=== PATIENT | male | born 1945 | race Caucasian/White ===

== ENCOUNTER → 2017-04-15 | Outpatient (CLI) | payer MEDICARE, OTHER ==
[~2017-04-15] MED LIST: ASPI-630 PO; ATOR20TA58 PO; CAND32TA2 PO; CARV6.252 PO; CLOP75TA PO; FISH1CAP PO; METF500T4 PO
--- NOTE | 2017-04-15 12:25 | RAD ---
APPROVED REPORT Test Type: Exercise Stress Nurse/Tech: Roxann Strong R.N. Test Indications: CAD Cardiac History: Stents x7, CAD Medications: SEE EMR Medical History: SEE EMR Resting ECG: SR Resting Heart Rate: 74 bpm Resting Blood Pressure: 117/75mmHg Pretest Chest Pain: No chest pain Nurse/Tech Notes S1S2, lungs CTA, denied chest pain and SOA. Consent: The procedure was explained to the patient in lay terms. Informed consent was witnessed. Chapo eout was entered into [employer]. History and Stress Test performed by Roxann Strong R.N. Stress Symptoms Slightly SOA. POST EXERCISE Reason for Termination: Reached target heart rate Target HR: 124 Max HR: 129 bpm Exercise duration: 8:15 min:sec, 3 Stage Exercise capacity: 10.0METs Max Blood Pressure: 142/71mmHg Blood Pressure response to exercise: Normal blood pressure response during stress. Heart Rate response to exercise: Normal Chest Pain: No. Arrhythmia: No. ST Change: Yes. T-wave inversion AVL INTERPRETATION Stress EKG Conclusion: No acute changes were noted. Imaging Protocol IMAGE PROTOCOL: Rest Tc-99m/stress Tc-99m 1 day Rest: Stress: Viability: Radiopharm.Tc99m WxuodnwsuKh66j Sestamibi Vevm12hQh 33mCi Duration 15min. 15min. Img Date 04/15/2017 04/15/2017 Inj-Img Uyfu38ckj. 60min. Rest Admin Site:IV - Right AntecubitalAdministrator:RT Evans (R)(N) Stress Admin Site: IV - Right AntecubitalAdministrator: RT Evans (R)(N) STRESS DATA End Diast. Vol.128.0mlAv. Heart Rate83.0bpm End Syst. Vol.52.0mlCO Index BSA6.3L/min Myocardial Arvu212.0gEject. Zlkgqqwc59.0% Stress Rates Pk. Fill Rate2.55EDV/secLVtime Pk. Fill 197.69msec Pk. Empty Rate3.66ESV/secLVtime Pk. Xawxl360.94msec 07/03 Pk. Fill0.53EDV/sec Stress Scores Regional WT2.00Summed WT25.00 Regional WM0.00Summed WM4.00 LV Perfusion Normal perfusion at stress. Wall Motion Normal wall motion. EF > 55% LV Perf. Quant 17 Seg. SSS1.00 17 Seg. SRS2.00 17 Seg. SDS0.00 Stress Defect Extent (% LAD)0.00Rest Defect Extent (% LAD)14.40Rev. Defect Extent (% LAD)0.00 Stress Defect Extent (% LCX) 8.80Rest Defect Extent (% LCX)31.30Rev. Defect Extent (% LCX)0.00 Stress Defect Extent (% RCA)0.00Rest Defect Extent (% RCA)0.00Rev. Defect Extent (% RCA)0.00 Stress Defect Extent (% JESSIKA)2.40Rest Defect Extent (% JESSIKA)12.60Rev. Defect Extent (% JESSIKA)0.00 Other Information Quality:Poor Risk Assessment: Low Risk Conclusion 1. Normal exercise capacity at 10 Mets achieved. 2. No evidence of ischemia by EKG 3. Normal perfusion at stress. 4. Resting images suboptimal due to motion artifact. 5. Normal EF at > 55% 6. Low risk study.
== END | disposition home or self-care (01) ==
LOC: NM 08:24
PROVIDERS: ATTEND Internal Medicine Cardiovascular Disease
DX: I25.10 Atherosclerotic heart disease of native coronary artery without angina pectoris (principal); I49.5 Sick sinus syndrome; Z79.01 Long term (current) use of anticoagulants
CPT/HCPCS: 78452; 93017; 96374; 96376; A9500

== ENCOUNTER → 2018-04-01 | Outpatient (CLI) | payer MEDICARE, OTHER ==
[~2018-04-01] MED LIST changes: +METF500T16 PO; -METF500T4 PO
--- NOTE | 2018-04-01 10:02 | CARD ---
MR#: [id number] Date of Study: 04/01/2018 Ordering Physician: NORAH SHERWOOD, Referring Physician: NORAH SHERWOOD, Tech: Dennise Baltazar APPROVED REPORT EXAM: Two-dimensional and M-mode echocardiogram with Doppler and color Doppler. Other Information Quality : Good INDICATION CAD 2D DIMENSIONS RVDd3.6 (2.9-3.5cm)Left Atrium(2D)4.6 (1.6-4.0cm) IVSd1.2 (0.7-1.1cm)Aortic Root(2D)3.4 (2.0-3.7cm) LVDd5.8 (3.9-5.9cm)LVOT Diameter2.1 (1.8-2.4cm) PWd1.4 (0.7-1.1cm)IVSs3.7 (0.8-1.2cm) Aortic Valve AoV Peak Leroy.158.9cm/sAoV VTI33.2cm AO Peak GR.10.1mmHgLVOT Peak Leroy.67.5cm/s LVOT VTI 15.75cmAO Mean GR.5mmHg SUGAR (VMAX)1.71xl9MDT (VTI)1.71cm2 Mitral Valve MV E Opajzjfx72.4cm/sMV DECEL MBAB931wu MV A Rxelyqtp16.9cm/sMV WOD94dh E/A Ratio1.5MVA (PHT)3.40cm2 TDI E/Lateral E'8.0E/Medial E'12.5 Pulmonary Valve PV Peak Aqjwoblf378.1cm/sPV Peak Grad.4mmHg Tricuspid Valve RAP PUVRXTXF0gyJkUY Peak Gr.24mmHg JGXM21diWg Pulmonary Vein S1 Lqeozotc05.9cm/sD2 Kzktzbtd72.3cm/s PVa bwpdcahy920lmco LEFT VENTRICLE The left ventricle is normal size. There is normal left ventricular wall thickness. The left ventricu lar systolic function is normal and the ejection fraction is within normal range. The Ejection Fracti on is 55%. Septal motion consistent with conduction abnormality. Overall grossly normal wall motion. Transmitral Doppler flow pattern is normal for age. RIGHT VENTRICLE The right ventricle is normal size. There is normal right ventricular wall thickness. The right ventr icular systolic function is normal. ATRIA The left atrium size is normal. The right atrium size is normal. The interatrial septum is intact wit h no evidence for an atrial septal defect or patent foramen ovale as noted on 2-D or Doppler imaging. AORTIC VALVE The aortic valve is moderately calcified. Doppler and Color Flow revealed trace aortic regurgitation. There is no significant aortic valvular stenosis. MITRAL VALVE The mitral valve is normal in structure and function. There is no mitral valve stenosis. Doppler and Color-flow revealed trace mitral regurgitation. TRICUSPID VALVE The tricuspid valve is normal in structure and function. Doppler and Color Flow revealed trace tricus pid regurgitation. There is no tricuspid valve stenosis. PULMONIC VALVE The pulmonic valve is not well visualized. Doppler and Color Flow revealed trace pulmonic valvular re gurgitation. There is no pulmonic valvular stenosis. GREAT VESSELS The aortic root is normal in size. Normal pulmonary venous flow (Doppler). The IVC is normal in size and collapses >50% with inspiration. PERICARDIAL EFFUSION There is no evidence of significant pericardial effusion. Critical Notification Critical Value: No <Conclusion> The left ventricular systolic function is normal and the ejection fraction is within normal range. Th e Ejection Fraction is 55%. No significant wall motion abnormalities. No significant valvular disease. Signed by : Sotero Villareal, Electronically Approved : 04/01/2018 10:01:03
--- NOTE | 2018-04-01 12:56 | RAD ---
MR#: [id number] Date of Study: 04/01/2018 Ordering Physician: NORAH SHERWOOD, Referring Physician: MARCELLA REID Tech: RT Evans (R) (N) APPROVED REPORT Test Type: Exercise Stress Nurse/Tech: Efrain Kuhn RN Test Indications: CAD Cardiac History: 7 stents, DM Medications: See Electronic Medical Record Medical History: See Electronic Medical Record Resting ECG: SR with PAC Resting Heart Rate: 60 bpm Resting Blood Pressure: 138/74mmHg Pretest Chest Pain: None Nurse/Tech Notes Lungs CTA, S1S2 Consent: The procedure was explained to the patient in lay terms. Informed consent was witnessed. Chapo eout was entered into [employer]. History and Stress Test performed by Efrain Kuhn RN Stress Symptoms Dyspnea POST EXERCISE Reason for Termination: Reached target heart rate Target HR: 124 Max HR: 125 bpm 86% of Maximum Predicted HR: 146 bpm Exercise duration: 8:19 min:sec, 3 Stage Max Blood Pressure: 160/74mmHg Blood Pressure response to exercise: Normal blood pressure response during stress. Heart Rate response to exercise: Normal response Chest Pain: No. Arrhythmia: Yes. PAC, PVC ST Change: No. INTERPRETATION Stress EKG Conclusion: The resting EKG showed a sinus rhythm, a septal Q wave and nonspecific ST segm ent changes. The stress EKG showed no significant changes from baseline. No EKG evidence of stress-induced ischemia. Imaging Protocol IMAGE PROTOCOL: Rest Tc-99m/stress Tc-99m 1 day Rest: Stress: Viability: Radiopharm.Tc99m NtiaoilwhWo71q Sestamibi Dose11.5mCi 34.5mCi Duration 15min. 10min. Img Date 04/01/2018 04/01/2018 Inj-Img Lxyf55jif. 60min. Rest Admin Site:IV - Right AntecubitalAdministrator:RT Evans (R)(N) Stress Admin Site: IV - Right AntecubitalAdministrator: YOANA Cox, ARRT (R)(N) STRESS DATA End Diast. Vol.154.0mlAv. Heart Rate75.0bpm End Syst. Vol.66.0mlCO Index BSA0.0L/min Myocardial Euna278.0gEject. Hexdtrvd78.0% Stress Rates Pk. Fill Rate2.42EDV/secLVtime Pk. Fill 234.85msec Pk. Empty Rate2.59ESV/secLVtime Pk. Eject99.49msec 1/3 Pk. Fill1.14EDV/sec Stress Scores Regional WT1.00Summed WT13.00 Regional WM0.00Summed WM13.00 LV Perfusion The stress scans show mild apical thinning. The rest scans show mild apical thinning. Nuclear imaging shows no reversible ischemia. Nuclear imaging shows fixed apical thinning suggestive of prior infarct. Wall Motion Left ventricular systolic function shows an ejection fraction of 57% and slight apical hypokinesis. LV Perf. Quant 17 Seg. SSS2.00 17 Seg. SRS3.00 17 Seg. SDS0.00 Stress Defect Extent (% LAD)3.80Rest Defect Extent (% LAD)1.90Rev. Defect Extent (% LAD)0.60 Stress Defect Extent (% LCX) 23.80Rest Defect Extent (% LCX)13.80Rev. Defect Extent (% LCX)2.50 Stress Defect Extent (% RCA)0.00Rest Defect Extent (% RCA)0.00Rev. Defect Extent (% RCA)0.00 Stress Defect Extent (% JESSIKA)7.80Rest Defect Extent (% JESSIKA)6.10Rev. Defect Extent (% JESSIKA)0.70 Conclusion 1. Good exercise tolerance. 2. No chest pain with exertion. 3. No EKG evidence of stressed induced ischemia. 4. Nuclear imaging shows no reversible ischemia. 5. Nuclear imaging shows mild fixed apical thinning. 6. Intact Left ventricular systolic function with an ejection fraction of 57%. 7. Moderately low risk Lexiscan nuclear stress test showing good exercise tolerance, no chest pain wi th exertion, no evidence of reversible ischemia on nuclear scans and good LV systolic function. Signed by : Wesley De Souza MD Electronically Approved : 04/01/2018 12:54:36
== END | disposition home or self-care (01) ==
LOC: ECHO 07:32
PROVIDERS: ATTEND Internal Medicine Cardiovascular Disease
DX: I25.10 Atherosclerotic heart disease of native coronary artery without angina pectoris (principal); E11.9 Type 2 diabetes mellitus without complications
CPT/HCPCS: 78452; 93017; 93306; 96374; 96376; A9500

== ENCOUNTER → 2019-03-19 | Outpatient (CLI) | payer MEDICARE, OTHER ==
[~2019-03-19] MED LIST changes: +CAND32TA19 PO; -CAND32TA2 PO; +CARV6.2511 PO; -CARV6.252 PO; +REGADENOSON 0.4 MG/5 ML DISP.SYRIN. IV ONE
--- NOTE | 2019-03-19 09:08 | CARD ---
MR#: [id number] Date of Study: 03/19/2019 Ordering Physician: NORAH SHERWOOD, Referring Physician: NORAH SHERWOOD Tech: Gilma Adkins RDCS APPROVED REPORT EXAM: Two-dimensional and M-mode echocardiogram with Doppler and color Doppler. Other Information Quality : AverageHR: 64bpm Rhythm : NSR INDICATION CAD 2D DIMENSIONS RVDd3.5 (2.9-3.5cm)Left Atrium(2D)4.0 (1.6-4.0cm) IVSd1.5 (0.7-1.1cm)Aortic Root(2D)3.6 (2.0-3.7cm) LVDd5.2 (3.9-5.9cm)LVOT Diameter2.2 (1.8-2.4cm) PWd1.2 (0.7-1.1cm)IVSs1.9 (0.8-1.2cm) LVDs3.6 (2.5-4.0cm)FS (%) 30.2 % PWs1.7 (0.8-1.2cm)SV73.2 ml LVEF(%)57.2 (>50%) M-Mode DIMENSIONS Left Atrium(MM)3.92 (2.5-4.0cm)Aortic Root3.72 (2.2-3.7cm) Aortic Valve AoV Peak Leroy.119.5cm/sAoV VTI25.5cm AO Peak GR.5.7mmHgLVOT Peak Leroy.63.6cm/s LVOT VTI 14.79cmAO Mean GR.3mmHg SUGAR (VMAX)1.76nw8GMB (VTI)2.14cm2 Mitral Valve MV E Avornapb83.0cm/sMV DECEL AGSA805lz MV A Qaacfhqm47.3cm/sMV VUL77ql E/A Ratio0.7MVA (PHT)2.25cm2 TDI E/Lateral E'4.8E/Medial E'9.9 Pulmonary Valve PV Peak Qvvwptkf16.7cm/sPV Peak Grad.3mmHg Pulmonary Vein S1 Pypinvrg24.9cm/sD2 Xktkkayd31.4cm/s PVa gurfgggi401dgbh LEFT VENTRICLE The left ventricle is normal size. There is mild concentric left ventricular hypertrophy. The left ve ntricular systolic function is normal and the ejection fraction is within normal range.The Ejection F raction is 55-60%. There is normal LV segmental wall motion. Transmitral Doppler flow pattern is Grad e I-abnormal relaxation pattern. RIGHT VENTRICLE The right ventricle is normal size. There is normal right ventricular wall thickness. The right ventr icular systolic function is normal. ATRIA The left atrium is mildly dilated. The right atrium size is normal. The interatrial septum is intact with no evidence for an atrial septal defect or patent foramen ovale as noted on 2-D or Doppler imagi ng. AORTIC VALVE The aortic valve is trileaflet. The aortic valve is heavily calcified. Doppler and Color Flow reveale d trace aortic regurgitation. There is no significant aortic valvular stenosis. MITRAL VALVE The mitral valve is thickened but opens well. There is no evidence of mitral valve prolapse. There is no mitral valve stenosis. Doppler and Color-flow revealed mild mitral regurgitation. TRICUSPID VALVE The tricuspid valve is normal in structure and function. Doppler and Color Flow revealed no tricuspid valve regurgitation noted. There is no tricuspid valve prolapse or vegetation. There is no tricuspid valve stenosis. PULMONIC VALVE The pulmonic valve is not well visualized. GREAT VESSELS The aortic root is normal in size. The ascending aorta is moderately dilated at 4.2cm. The IVC is nor mal in size and collapses >50% with inspiration. PERICARDIAL EFFUSION There is no evidence of significant pericardial effusion. Critical Notification Critical Value: No <Conclusion> The left ventricular systolic function is normal and the ejection fraction is within normal range.The Ejection Fraction is 55-60%. There is normal LV segmental wall motion. The aortic valve is trileaflet. The aortic valve is heavily calcified. The ascending aorta is moderately dilated at 4.2cm. Signed by : Sotero Villareal, Electronically Approved : 03/19/2019 09:08:11
--- NOTE | 2019-03-19 11:42 | RAD ---
MR#: [id number] Date of Study: 03/19/2019 Ordering Physician: NORAH SHERWOOD, Referring Physician: MARCELLA REID Tech: YOANA Cox, ARRT (R) (N) APPROVED REPORT Test Type: Pharmacological Stress Nurse/Tech: Cristina Araya R.N. Test Indications: CAD Cardiac History: Family history, Hypertension, Diabetes, stents Medications: See Electronic Medical Record Medical History: See Electronic Medical Record Resting ECG: NSR Resting Heart Rate: 65 bpm Resting Blood Pressure: 146/78mmHg Pretest Chest Pain: No chest pain Nurse/Tech Notes S1S2, lungs sound clear Consent: The procedure was explained to the patient in lay terms. Informed consent was witnessed. Chapo eout was entered into [email or web address]. History and Stress Test performed by Cristina Araya R.N. Pharm. Details Pharmacologic stress testing was performed using 0.4mg per 5ml of regadenoson given intravenously ove r 7-10 seconds. Stress Symptoms No chest pain or symptoms. POST EXERCISE Reason for Termination: Infusion complete Target HR: 123 Max HR: 92 bpm Max Blood Pressure: 149/82mmHg Blood Pressure response to exercise: Normal blood pressure response during stress. Chest Pain: No. Arrhythmia: No. ST Change: No. INTERPRETATION Stress EKG Conclusion: Baseline EKG showed sinus rhythm. No ischemic changes at peak stress. No arr hythmias. Imaging Protocol IMAGE PROTOCOL: Rest Tc-99m/stress Tc-99m 1 day Rest: Stress: Viability: Radiopharm.Tc99m TnddiruzoNx88o Sestamibi Ccvz95pDr 33mCi Img Date 03/19/2019 03/19/2019 Inj-Img Amyg45vtb. 45min. Rest Admin Site:IV - Right HandAdministrator:YOANA Cox, ARRT (R)(N) Stress Admin Site: IV - Right HandAdministrator: YOANA Cox, ARRT (R)(N) STRESS DATA End Diast. Vol.147.0mlLVEDV index BSA70.0ml End Syst. Vol.77.0mlLVESV index BSA37.0ml Myocardial Ifou114.0gEject. Sdzkuepz10.0% Stress Scores Regional WT1.00Summed WT21.00 Regional WM0.00Summed WM19.00 LV Perfusion Scintigraphic images showed apical wall thinning without any evidence of ischemia Wall Motion Normal left ventricle systolic function with ejection fraction 55%. LV Perf. Quant 17 Seg. SSS8.00 17 Seg. SRS10.00 17 Seg. SDS0.00 Stress Defect Extent (% LAD)13.80Rest Defect Extent (% LAD)31.90Rev. Defect Extent (% LAD)1.90 Stress Defect Extent (% LCX) 31.30Rest Defect Extent (% LCX)42.50Rev. Defect Extent (% LCX)0.00 Stress Defect Extent (% RCA)0.00Rest Defect Extent (% RCA)4.40Rev. Defect Extent (% RCA)0.00 Stress Defect Extent (% JESSIKA)16.70Rest Defect Extent (% JESSIKA)26.50Rev. Defect Extent (% JESSIKA)1.50 Conclusion 1. Regadenoson cardioisotope stress test showed apical wall thinning without any evidence of ischemia . 2. Normal left ventricular systolic function with ejection fraction calculated at 55%. 3. Low risk for cardiac events. Signed by : Norah Sherwood, Electronically Approved : 03/19/2019 11:42:34
== END | disposition home or self-care (01) ==
LOC: ECHO 07:47
PROVIDERS: ATTEND Internal Medicine Cardiovascular Disease
DX: I08.0 Rheumatic disorders of both mitral and aortic valves (principal); I11.9 Hypertensive heart disease without heart failure; I25.10 Atherosclerotic heart disease of native coronary artery without angina pectoris; E11.9 Type 2 diabetes mellitus without complications; Z95.5 Presence of coronary angioplasty implant and graft
CPT/HCPCS: 78452; 93017; 93306; A9500; J2785

== ENCOUNTER → 2020-06-02 | Outpatient (CLI) | payer MEDICARE, OTHER ==
--- NOTE | 2020-06-02 13:29 | RAD ---
MR#: [id number] Date of Study: 06/02/2020 Ordering Physician: NORAH SHERWOOD Referring Physician: MARCELLA REID Tech: RT Ronit Mercado) (N) APPROVED REPORT Test Type: Pharmacological Stress Nurse/Tech: Efrain Kuhn RN Test Indications: CAD Cardiac History: stents x 8, DM Medications: See Electronic Medical Record Medical History: See Electronic Medical Record Resting ECG: SR Resting Heart Rate: 72 bpm Resting Blood Pressure: 136/81mmHg Pretest Chest Pain: None Nurse/Tech Notes Lungs CTA, S1S2 Consent: The procedure was explained to the patient in lay terms. Informed consent was witnessed. Chapo eout was entered into [employer]. History and Stress Test performed by RT Ronit Krueger) (N) Pharm. Details Pharmacologic stress testing was performed using 0.4mg per 5ml of regadenoson given intravenously ove r 7-10 seconds. Stress Symptoms No chest pain or symptoms. POST EXERCISE Reason for Termination: Infusion complete Max HR: 90 bpm Max Blood Pressure: 164/90mmHg Blood Pressure response to exercise: Normal blood pressure response during stress. Heart Rate response to exercise: Normal response Chest Pain: No. Arrhythmia: No. ST Change: No. INTERPRETATION Stress EKG Conclusion: No evidence of stress induced EKG changes. Imaging Protocol IMAGE PROTOCOL: Rest Tc-99m/stress Tc-99m 1 day Rest: Stress: Viability: Radiopharm.Tc99m PiaywzdbjMs03d Sestamibi Dose10.5mCi 32.7mCi Duration 13min. 13min. Img Date 06/02/2020 06/02/2020 Inj-Img Eiam20hvh. 60min. Rest Admin Site:IV - Right AntecubitalAdministrator:RT Ronit Mercado)(N) Stress Admin Site: IV - Right AntecubitalAdministrator: RT Ronit Krueger)(N) STRESS DATA End Diast. Vol.110.0mlLVEDV index BSA53.0ml End Syst. Vol.57.0mlLVESV index BSA28.0ml Myocardial Uuyh383.0gEject. Rasihvcl37.0% Stress Scores Regional WT1.00Summed WT32.00 Regional WM0.00Summed WM14.00 LV Perfusion There is a small/mild distal anteroseptal perfusion defect at stress, which reverses at rest. Wall Motion Mild global hypokinesis. EF 45% LV Perf. Quant 17 Seg. SSS4.00 17 Seg. SRS5.00 17 Seg. SDS0.00 Stress Defect Extent (% LAD)6.90Rest Defect Extent (% LAD)3.10Rev. Defect Extent (% LAD)0.00 Stress Defect Extent (% LCX) 16.30Rest Defect Extent (% LCX)22.50Rev. Defect Extent (% LCX)0.00 Stress Defect Extent (% RCA)0.00Rest Defect Extent (% RCA)0.00Rev. Defect Extent (% RCA)0.00 Stress Defect Extent (% JESSIKA)7.80Rest Defect Extent (% JESSIKA)6.70Rev. Defect Extent (% JESSIKA)1.70 Other Information Quality:Average Risk Assessment: Low-Moderate Risk Conclusion 1. No evidence of stress induced EKG changes. 2. Small distal anteroseptal reversible perfusion defect. No significant ischemia. 3. Mild LV dysfunction. EF 45% 4. Moderate risk for future CV events. Signed by : Sotero Villareal, Electronically Approved : 06/02/2020 13:28:29
--- NOTE | 2020-06-02 15:44 | RAD ---
MR#: [id number] Date of Study: 06/02/2020 Ordering Physician: NORAH SHERWOOD, Referring Physician: NORAH SHERWOOD, Tech: APPROVED REPORT Patient Location: OUT-PATIENT Laterality:Bilateral Doppler Spectral Velocity Analysis Right Left pCCA 67/16 cm/spCCA 77/14 cm/s mCCA 61/17 cm/smCCA 62/18 cm/s dCCA 58/19 cm/sdCCA 66/21 cm/s ECA 93/ cm/sECA 64/ cm/s pICA 55/13 cm/spICA 55/12 cm/s Augustine 48/16 cm/smICA 48/17 cm/s dICA 67/16 cm/sdICA 62/24 cm/s ICA/CCA 1.00ICA/CCA 0.81 Findings Grayscale images of the bilateral carotid vasculature demonstrates mild intimal hyperplasia and ather osclerotic plaque noted. Spectral waveforms are overall consistent with 0 to less than 50% stenosis bilaterally in the interna l carotid vessels. Antegrade vertebral velocities are noted with normal ICA to CCA ratios. Critical Notification Critical Value: No <Conclusion> 1. No significant carotid disease bilaterally. Signed by : Sotero Villareal, Electronically Approved : 06/02/2020 15:43:28
--- NOTE | 2020-06-03 10:27 | CARD ---
MR#: [id number] Date of Study: 06/02/2020 Ordering Physician: NORAH SHERWOOD, Referring Physician: NORAH SHERWOOD, Jamia: Mary Carmen APPROVED REPORT EXAM: Two-dimensional and M-mode echocardiogram with Doppler and color Doppler. Other Information Quality : AverageHR: 69bpm Rhythm : NSR INDICATION Cardiac Disease: CAD 2D DIMENSIONS Left Atrium(2D)4.2 (1.6-4.0cm)IVSd1.2 (0.7-1.1cm) Aortic Root(2D)3.8 (2.0-3.7cm)LVDd5.3 (3.9-5.9cm) LVOT Diameter2.4 (1.8-2.4cm)PWd1.2 (0.7-1.1cm) LVDs4.0 (2.5-4.0cm)FS (%) 24.6 % SV64.3 mlLVEF(%)48.5 (>50%) Aortic Valve AoV Peak Leroy.145.6cm/Leslie Peak GR.8.5mmHg Mitral Valve MV E Kpktljpp84.3cm/sMV DECEL LXWR612og MV A Xlrwygvd20.9cm/sE/A Ratio0.7 MV A Slsaacwg821mf Pulmonary Valve PV Peak Petqxyko98.2cm/s Pulmonary Vein S1 Ouidjujv04.1cm/sD2 Gxyevgvo04.6cm/s PVa ifhnfhmk596bhcd LEFT VENTRICLE The left ventricle is normal size. There is normal left ventricular wall thickness. The left ventricu lar systolic function is normal and the ejection fraction is within normal range. EF 55% Septal motio n suggestive of conduction defect. The apical LV is mildly hypokinetic. Transmitral Doppler flow magdi franklin is Grade I-abnormal relaxation pattern. No left ventricle thrombus noted on this study. There is no ventricular septal defect visualized. There is no left ventricular aneurysm. RIGHT VENTRICLE The right ventricle is normal size. There is normal right ventricular wall thickness. The right ventr icular systolic function is normal. ATRIA The left atrium size is normal. The right atrium size is normal. The interatrial septum is intact wit h no evidence for an atrial septal defect or patent foramen ovale as noted on 2-D or Doppler imaging. AORTIC VALVE The aortic valve is mildly thickened and calcified with restricted leaflet motion. Doppler and Color Flow revealed no significant aortic regurgitation. There is no significant aortic valvular stenosis. There is no aortic valvular vegetation. MITRAL VALVE The mitral valve is normal in structure and function. There is no evidence of mitral valve prolapse. There is no mitral valve stenosis. Doppler and Color Flow revealed trace mitral regurgitation. TRICUSPID VALVE The tricuspid valve is normal in structure and function. Doppler and Color Flow revealed no tricuspid valve regurgitation noted. There is no tricuspid valve prolapse or vegetation. There is no tricuspid valve stenosis. PULMONIC VALVE Doppler and Color Flow revealed no pulmonic valvular regurgitation. There is no pulmonic valvular edson nosis. GREAT VESSELS The aortic root is normal in size. The ascending aorta is Mildly dilated measuring up to 4.7cm The pu lmonary artery is normal. The IVC is normal in size and collapses >50% with inspiration. PERICARDIAL EFFUSION There is no pleural effusion. There is no evidence of significant pericardial effusion. Critical Notification Critical Value: No <Conclusion> The left ventricular systolic function is normal and the ejection fraction is within normal range. EF 55% Septal motion suggestive of conduction defect. The apical LV is mildly hypokinetic. The ascending aorta is Mildly dilated measuring up to 4.7cm Signed by : Sotero Villareal, Electronically Approved : 06/02/2020 12:26:31
== END ==
LOC: ECHO 08:12
PROVIDERS: ATTEND Internal Medicine Cardiovascular Disease
DX: I35.1 Nonrheumatic aortic (valve) insufficiency (principal); I25.10 Atherosclerotic heart disease of native coronary artery without angina pectoris; I65.23 Occlusion and stenosis of bilateral carotid arteries; R09.89 Other specified symptoms and signs involving the circulatory and respiratory systems; Z95.5 Presence of coronary angioplasty implant and graft
CPT/HCPCS: 78452; 93017; 93306; 93880; A9500; J2785

== ENCOUNTER 2020-06-17 06:57 | Outpatient (CLI) | payer MEDICARE, OTHER ==
[2020-06-17] VITALS (19 sets, daily range): BP systolic 122–169; BP diastolic 71–94
[~2020-06-17] VITALS: Ht 172.7 cm; Wt 93.0 kg
[~2020-06-17 06:57] MED LIST changes: -REGADENOSON 0.4 MG/5 ML DISP.SYRIN. IV ONE
[2020-06-17 07:34] LABS: HEMATOCRIT 42.9 % (39.0-53.0); HEMOGLOBIN 14.8 g/dL (13.0-17.5); RED BLOOD COUNT 4.64 x10^6/uL (4.30-5.70); RED CELL DISTRIBUTION WIDTH 13.6 % (11.5-14.5); WHITE BLOOD COUNT 7.3 x10^3/uL (4.0-11.0)
[2020-06-17] MEDS ORDERED: IODIXANOL 320 MG/ML 100 ML VIAL. ONE ×2 (07:36→09:06)
[2020-06-17] MEDS ORDERED: LIDOCAINE 1% PF 2 ML VIAL. ONE (07:36)
[2020-06-17 07:44] LABS: CALCIUM 8.7 mg/dL (8.5-10.1); CREATININE 1.1 mg/dL (0.7-1.3); GFR 65.1; POTASSIUM 4.1 mmol/L (3.5-5.1)
[2020-06-17 07:47] LABS: PROTHROMBIN TIME PATIENT 13.4 SEC (11.7-14.0)
[2020-06-17] MEDS ORDERED: HEPARIN for IV BOLUS 10,000 UNIT/10 ML VIAL. ONE (08:06)
[2020-06-17] MEDS ORDERED: NITROGLYCERIN 200 MCG/2 ML SYRINGE FOR CATH/VASC LAB. ONE (08:06)
[2020-06-17] MEDS ORDERED: VERAPAMIL 5 MG/2 ML VIAL. ONE (08:06)
[2020-06-17] MEDS ORDERED: fentaNYL PF VIAL 100 MCG/2 ML VIAL ONE (08:06)
[2020-06-17] MEDS ORDERED: MIDAZOLAM HCL/PF 5 MG/5 ML VIAL. ONE (08:06)
[2020-06-17] MEDS ORDERED: TAMS0.4C97 PO (08:12)
[2020-06-17] MEDS ORDERED: EMPA10TA PO (08:12)
[2020-06-17] MEDS ORDERED: [UNRECOGNIZED DRUG - OTHER] PO (08:12)
[2020-06-17] MEDS ORDERED: BIVALIRUDIN 250 MG VIAL. IV ONE ×2 (09:02→09:15)
[2020-06-17] MEDS ORDERED: NITROGLYCERIN 200 MCG/2 ML SYRINGE FOR CATH/VASC LAB. IART ONE (09:15)
[2020-06-17] MEDS ORDERED: HEPARIN for IV BOLUS 10,000 UNIT/10 ML VIAL. IART ONE (09:15)
[2020-06-17] MEDS ORDERED: IODIXANOL 320 MG/ML 100 ML VIAL. IART ONE (09:15)
[2020-06-17] MEDS ORDERED: MIDAZOLAM HCL/PF 5 MG/5 ML VIAL. IV ONE (09:15)
[2020-06-17] MEDS ORDERED: fentaNYL PF VIAL 100 MCG/2 ML VIAL IV ONE (09:15)
[2020-06-17] MEDS ORDERED: LIDOCAINE 1% PF 2 ML VIAL. INJ ONE (09:15)
[2020-06-17] MEDS ORDERED: VERAPAMIL 5 MG/2 ML VIAL. IART ONE (09:15)
[2020-06-17] MEDS ORDERED: CONTRAST GIVEN. MC PRN (09:30)
[2020-06-17] MEDS ORDERED: CLOPIDOGREL BISULFATE 75 MG TABLET ONE (09:46)
[2020-06-17] MEDS ORDERED: ASPIRIN 325 MG TABLET ONE (09:46)
--- NOTE | 2020-06-17 09:56 | PDOC ---
MODERATE SEDATION ASSESSMENT RISKS/ALTERNATIVES Risks/Alternatives Risks and alternatives of this type of sedation and procedure discussed with: RISK/ALTERNATIVES: Patient H & P ON CHART H & P H & P on chart and reviewed for co-morbid conditions and appropriate labs. H&P ON CHART: Yes STATUS PREG STATUS ASSESSED: N/A MEDS/ALLERGIES REVIEWED Meds/Allergies Reviewed Medications and Allergies including time and route of recently administered narcotics and sedatives. MEDS/ALLERGIES REVIEWED: Yes ASA RATING ASA RATING: II AIRWAY ASSESSMENT Airway Assessment Airway patency, oral function limitations, presence of caps, crowns, dentures, partials, and ability to extend neck assessed. AIRWAY ASSESSMENT: Yes MALLAMPATI SCORE MALLAMPATI SCORE: II PRE-SEDATION ASSESSMENT PRE-SEDATION ASSESSMENT: Yes NORAH SHERWOOD MD Jun 17, 2020 09:55
[2020-06-17] MEDS ORDERED: ACETAMINOPHEN 325 MG TABLET. PO PRN (10:00)
[2020-06-17] MEDS ORDERED: NITROGLYCERIN SUBLINGUAL 0.4 MG BOTTLE OF 25. SL PRN (10:00)
[2020-06-17] MEDS ORDERED: ASPIRIN 325 MG TABLET PO ONE (10:00)
[2020-06-17] MEDS ORDERED: CLOPIDOGREL BISULFATE 75 MG TABLET PO ONE (10:00)
[2020-06-17] MEDS ORDERED: IV 1/2 NORMAL SALINE 1,000 ML IV SCH (10:00)
--- NOTE | 2020-06-17 10:21 | CARD ---
MR#: [id number] Date of Study: 06/17/2020 Ordering Physician: NORAH SHERWOOD, Referring Physician: NORAH SHERWOOD Tech: ANDRÉS PICKARD RTR APPROVED REPORT Technologist: ANDRÉS PICKARD RTR Nurse: Nhung Felix R.N. Procedure(s) performed: 1. Left heart catheterization and selective coronary angiography via right t ransradial approach 2. Successful PCI/drug-eluting stent placement to the left anterior descending artery 3. Instantaneous wave free ratio (IFR) measurement to right coronary artery stenosis MODERATE SEDATION TIME: 75 MINUTES FLUORO TIME: 21.8 MIN DOSE: 141 GYCM2 CONTRAST: 203CC VISI INDICATION The indication(s) include : Dyspnea on exertion in a patient with known history of coronary artery di sease and positive stress test. [facility] Clinical Frailty Scale [facility] Clinical Frailty Scale: Managing Well Heart Failure Heart Failure: No PROCEDURE NARRATIVE After explaining the risks, benefits and alternative options, informed consent was obtained from carmen ent. Patient was brought to the cardiac Riding Instructor and right wrist was prepped and draped in the usual fashion after confirming a positive modified Julius's test. Arterial access was obtained in the righ t radial artery and a 6 [place] sheath was inserted. 6 [place] Raúl catheter was used to perform mando ective angiography of the left and right coronary arteries. Since patient was found to have angiogra phically borderline significant stenosis involving the right coronary artery, a decision was made to perform physiologic significance using instantaneous wave free ratio (IFR) measurement. The right co ronary artery was engaged with a 6 [place] JR4 guide catheter and the stenosis in the midsegment was c rossed with a LeadGenius Verrata pressure wire. IFR measurement was made there was physiologically insi gnificant at 0.98. Left ventriculography was not performed due to contrast load used for interventio n and since recent 2D echo showed LVEF 55%. FINDINGS Coronary angiography: a. The left main coronary artery arose from the left sinus of Valsalva, gave rise to the left anteri or descending and left circumflex arteries and did not show any significant stenosis. b. The left anterior descending artery was a small to medium caliber vessel that showed calcified 90 % stenosis in the proximal segment, patent stent in the mid segment and another patent stent in the m id to distal segment with 50% stenosis just proximal to the stent. The first diagonal branch which i s a moderate to large caliber vessel showed patent stent in the proximal segment with 20% instent res tenosis. c. The left circumflex artery showed patent stent in the midsegment with probably 20% in-stent reste nosis. d. The right coronary artery was a large and dominant vessel arising from the right sinus of Valsalv a that showed 50% stenosis in the midsegment that was physiologically insignificant based on IFR swapna urement of 0.98. The previously placed stent in the posterolateral branch was patent. INTERVENTION The left main coronary artery was engaged with a 6 [place] XB 3.5 guide catheter. The stenosis in the proximal segment of the left anterior descending artery was crossed with a 0.014 inch Summon guidewire. This was predilated with a 2.5 x 12 mm trek balloon. Initial attempts to advance stent across this lesion were unsuccessful secondary to tortuosity and calcification. A 6 [place] Telescope inner catheter was then advanced into the proximal segment of the left anterior descending artery fo r backup support. Subsequently, a 2.5 x 12 mm [employer] Promus Elite stent was advanced and successfully deployed across the lesion. Follow-up angiography showed resolution of the lesion with MEENA-3 distal flow. Patient tolerated the procedure well. Hemostasis was achieved using TR band. T here were no immediate complications. MEENA Flow MEENA Flow (Pre-Intervention): MEENA-2 MEENA Flow (Post-Intervention): MEENA-3 Conclusion 1. Coronary artery disease with patent previously placed stents in mid and mid to distal segments of LAD and proximal segment of moderate to large caliber diagonal branch. There was 90% calcified sten osis in the proximal segment of left anterior descending artery. Patient also had patent stents in t he left circumflex artery and posterolateral branch of the right coronary artery. There was 50% sten osis in mid segment of the right coronary artery that was physiologically insignificant based on IFR measurement of 0.98. 2. Successful PCI/drug-eluting stent placement to the left anterior descending artery. Recommendations 1. Aspirin 325 mg daily for 1 month followed by 81 mg daily 2. Plavix 75 mg daily 3. Cardiovascular risk factor modification Signed by : Norah Sherwood, Electronically Approved : 06/17/2020 10:20:42
--- NOTE | 2020-06-17 14:12 | NUR ---
Discharge Note: STEVAN HERNANDEZ Discharge instructions and discharge home medications reviewed with Patient and a copy given. All questions have been answered and understanding verbalized. The following instructions and handouts were given: Radial site care and Moderate sedation. Discontinued lines and drains: Left hand IV site dc'd and tip intact. Patient discharged to home with via personal vehicle.
[2020-06-18] MEDS ORDERED: CLOPIDOGREL BISULFATE 75 MG TABLET PO SCH (08:00)
[2020-06-18] MEDS ORDERED: ASPIRIN ENTERIC COATED 325 MG TABLET.DR. PO SCH (08:00)
== END 2020-06-17 14:15 | disposition home or self-care (01) ==
LOC: CCL 06:57
PROVIDERS: ATTEND Internal Medicine Cardiovascular Disease
DX: R06.00 Dyspnea, unspecified (principal); R94.39 Abnormal result of other cardiovascular function study; I25.10 Atherosclerotic heart disease of native coronary artery without angina pectoris; E78.5 Hyperlipidemia, unspecified; E11.9 Type 2 diabetes mellitus without complications; Z79.899 Other long term (current) drug therapy; Z98.890 Other specified postprocedural states; Z79.84 Long term (current) use of oral hypoglycemic drugs; Z88.8 Allergy status to other drugs, medicaments and biological substances
CPT/HCPCS: 36415; 80048; 85027; 85610; 93454; 93571; 99152; 99153; C1713; C1725; C1769; C1874; C1887; C1892; C9600; J0583; J1644; J2250; J3010; J3490; Q9967; 92928

== ENCOUNTER 2020-11-13 02:31 | Observation (INO) | payer MEDICARE, OTHER ==
[~2020-11-13] VITALS: Ht 172.7 cm; Wt 97.9 kg
[~2020-11-13 02:31] MED LIST changes: +EMPA10TA PO; +TAMS0.4C97 PO; +[UNRECOGNIZED DRUG - OTHER] PO
[2020-11-13 02:48] LABS: BASO # 0.1 x10^3/uL (0.0-0.2); BASO % 1 % (0-3); EOS # 0.3 x10^3/uL (0.0-0.7); EOS % 4 % (0-3); HEMATOCRIT 42.2 % (39.0-53.0); HEMOGLOBIN 14.7 g/dL (13.0-17.5); LYMPH # 1.7 x10^3/uL (1.0-4.8); LYMPH % 21 % (24-48); MEAN CORPUSCULAR HEMOGLOBIN 32 pg (25-35); MEAN CORPUSCULAR HGB CONC 35 g/dL (31-37); MEAN CORPUSCULAR VOLUME 93 fL (79-100); MONO # 0.7 x10^3/uL (0.0-1.1); MONO % 9 % (0-9); NEUT # 5.1 x10^3/uL (1.8-7.7); NEUT % 65 % (31-73); PLATELET COUNT 173 x10^3/uL (140-400); RED BLOOD COUNT 4.54 x10^6/uL (4.30-5.70); RED CELL DISTRIBUTION WIDTH 13.5 % (11.5-14.5); WHITE BLOOD COUNT 7.9 x10^3/uL (4.0-11.0)
[2020-11-13 02:57] LABS: CALCIUM 8.3 mg/dL (8.5-10.1); CREATININE 1.1 mg/dL (0.7-1.3); GFR 65.1
[2020-11-13 03:02] LABS: ALBUMIN/GLOBULIN RATIO 1.4 (1.0-1.7); TOTAL BILIRUBIN 0.4 mg/dL (0.2-1.0); TOTAL PROTEIN 6.9 g/dL (6.4-8.2)
--- NOTE | 2020-11-13 03:35 | RAD ---
INDICATION: Reason: chest pain / Spl. Instructions: / History: COMPARISON: None. FINDINGS: Single view of chest obtained. Enlarged cardiomediastinal silhouette. Suspected calcified lymph nodes in the mediastinum which can b e sequela of chronic granulomatous disease. Degenerative changes of the shoulders and spine. No defin ite focal airspace consolidation. IMPRESSION: * Cardiac silhouette prominent in size without focal airspace consolidation. Electronically signed by: Sivakumar Joel MD (11/13/2020 3:32 AM) [id number]
--- NOTE | 2020-11-13 03:49 | PHYS DOC ---
Past Medical History Past Medical History: MA, Other Additional Past Medical Histor: MA STENT IN 1998 Past Surgical History: Other Additional Past Surgical Histo: HEART STENT 1998 Smoking Status: Never Smoker Alcohol Use: None General Adult EDM: Chief Complaint: CHEST PAIN HPI: HPI: Patient is a 75 year old male past medical history of coronary artery disease s/p multiple stents presents with a chief complaint of chest pain. Patient states chest pain started around 0130 hrs. Patient's pain was sudden and radiated across his chest. Patient rated pain a 3 out of 10. States he had some discomfort with deep breath without shortness of breath nausea/vomiting or diaphoresis. Patient states he took a full dose aspirin. Shortly after arrival patient states chest pain completely resolved. Review of Systems: Review of Systems: Constitutional: Denies fever or chills. [] Eyes: Denies change in visual acuity. [] HENT: Denies nasal congestion or sore throat. [] Respiratory: Denies cough or shortness of breath. [] Cardiovascular: Positive chest pain GI: Denies abdominal pain, nausea, vomiting, bloody stools or diarrhea. [] : Denies dysuria. [] Musculoskeletal: Denies back pain or joint pain. [] Integument: Denies rash. [] Neurologic: Denies headache, focal weakness or sensory changes. [] Endocrine: Denies polyuria or polydipsia. [] Lymphatic: Denies swollen glands. [] Psychiatric: Denies depression or anxiety. [] Heart Score: C/O Chest Pain: Yes HEART Score for Chest Pain: HEART Score for Chest Pain Response (Comments) Value History Moderately Suspicious 1 ECG Nonspecific Repolarizatio 1 Age > 65 2 Risk Factors >3 Risk Factors or Hx CAD 2 Troponin < Normal Limit 0 Total 6 Risk Factors: Risk Factors: DM, Current or recent (<one month) smoker, HTN, HLP, family history of CAD, obesity. Risk Scores: Score 0 - 3: 2.5% MACE over next 6 weeks - Discharge Home Score 4 - 6: 20.3% MACE over next 6 weeks - Admit for Clinical Observation Score 7 - 10: 72.7% MACE over next 6 weeks - Early Invasive Strategies Allergies: Allergies: Allergies Coded Allergies Type Severity Reaction Last Updated Verified lisinopril Allergy Intermediate SWELLING 11/13/20 No Physical Exam: PE: General: alert, no acute distress. Skin: warm, dry and intact. Head:: Normocephalic, atraumatic. Neck: Trachea midline. Eyes: EOMI, Normal conjunctiva, No drainage CARDIOVASCULAR: Regular rate and rhythm RESPIRATORY: No respiratory distress Back: Full range of motion. MUSCULOSKELETAL: Full range of motion of bilateral upper and lower extremities. GASTROINTESTINAL: Abdomen soft without rebound or guarding. NEUROLOGICAL: Alert and noted to person, place and time. No neurological deficits observed Psychiatric: Cooperative. Normal judgment Current Patient Data: Labs: Laboratory Tests Test 11/13/20 02:40 White Blood Count 7.9 x10^3/uL (4.0-11.0) Red Blood Count 4.54 x10^6/uL (4.30-5.70) Hemoglobin 14.7 g/dL (13.0-17.5) Hematocrit 42.2 % (39.0-53.0) Mean Corpuscular Volume 93 fL (79-100) Mean Corpuscular Hemoglobin 32 pg (25-35) Mean Corpuscular Hemoglobin Concent 35 g/dL (31-37) Red Cell Distribution Width 13.5 % (11.5-14.5) Platelet Count 173 x10^3/uL (140-400) Neutrophils (%) (Auto) 65 % (31-73) Lymphocytes (%) (Auto) 21 % (24-48) L Monocytes (%) (Auto) 9 % (0-9) Eosinophils (%) (Auto) 4 % (0-3) H Basophils (%) (Auto) 1 % (0-3) Neutrophils # (Auto) 5.1 x10^3/uL (1.8-7.7) Lymphocytes # (Auto) 1.7 x10^3/uL (1.0-4.8) Monocytes # (Auto) 0.7 x10^3/uL (0.0-1.1) Eosinophils # (Auto) 0.3 x10^3/uL (0.0-0.7) Basophils # (Auto) 0.1 x10^3/uL (0.0-0.2) Sodium Level 142 mmol/L (136-145) Potassium Level 4.0 mmol/L (3.5-5.1) Chloride Level 106 mmol/L (98-107) Carbon Dioxide Level 26 mmol/L (21-32) Anion Gap 10 (6-14) Blood Urea Nitrogen 17 mg/dL (8-26) Creatinine 1.1 mg/dL (0.7-1.3) Estimated GFR (Cockcroft-Gault) 65.1 BUN/Creatinine Ratio 15 (6-20) Glucose Level 185 mg/dL (70-99) H Calcium Level 8.3 mg/dL (8.5-10.1) L Total Bilirubin 0.4 mg/dL (0.2-1.0) Aspartate Amino Transferase (AST) 18 U/L (15-37) Alanine Aminotransferase (ALT) 39 U/L (16-63) Alkaline Phosphatase 128 U/L (46-116) H Troponin I Quantitative < 0.017 ng/mL (0.000-0.055) Total Protein 6.9 g/dL (6.4-8.2) Albumin 4.0 g/dL (3.4-5.0) Albumin/Globulin Ratio 1.4 (1.0-1.7) Laboratory Tests 11/13/20 02:40 Laboratory Tests 11/13/20 02:40 Vital Signs: Vital Signs Date Time Temp Pulse Resp B/P (MAP) Pulse Ox O2 Delivery O2 Flow Rate FiO2 11/13/20 03:00 72 16 144/75 (98) 93 Room Air 11/13/20 02:35 98.4 98.4 EKG: EKG: [] Radiology/Procedures: Radiology/Procedures: [] Impression: Chest x-ray - no acute abnormalities Course & Med Decision Making: Course & Med Decision Making Pertinent Labs and Imaging studies reviewed. (See chart for details) [] Dragon Disclaimer: Dragon Disclaimer: This electronic medical record was generated, in whole or in part, using a voice recognition dictation system. Departure Departure Impression: Primary Impression: Chest pain Disposition: ADMITTED INPATIENT Admitting Physician: HIMS Condition: STABLE Referrals: TEX NAPOLES MD (PCP) DONNA DICKSON DO November 13, 2020 03:49
[2020-11-13] MEDS ORDERED: ONDANSETRON PF 4 MG/2 ML VIAL. IV PRN (04:00)
[2020-11-13] MEDS ORDERED: MORPHINE SULFATE 4 MG/ML VIAL. IV PRN (04:00)
[2020-11-13 05:30] VITALS: BP 144/83
--- NOTE | 2020-11-13 05:30 | NUR ---
The patient, STEVAN HERNANDEZ, 75 y/o, M admitted by OLIVIA FRANCOIS MD, was given written information regarding hospital policies, unit procedures and contact persons. COMPLETED HISTORY AND ASSESSMENT. PT FORGETFUL. SLIGHT [place]. BELONGINGS AT BEDSIDE. Valuables were checked and DOCUMENTED IN EMR. LCRN
--- NOTE | 2020-11-13 07:27 | EKG ---
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
[2020-11-13 07:55] VITALS: BP 152/75
--- NOTE | 2020-11-13 10:35 | PDOC2 ---
CONSULT Date of Consult Date of Consult DATE: 11/13/20 TIME: 10:35 Reason for Consult Reason for Consult: Chest pain Referring Physician Referring Physician: Dr. Dorado Identification/Chief Complaint Chief Complaint Chest pain Source Source: Chart review, Patient History of Present Illness Reason for Visit: 75-year-old pleasant male with history of coronary disease s/p multivessel PCI/VIVIAN to LCx/LAD/RCA presented complaining of retrosternal bandlike aching pain, 3-4/10 in severity not related to exertion or food intake. He stated that he lifted heavy bags earlier in the day. He denied any orthopnea/PND, palpitations or syncope. He is very active and exercises on a regular basis without any chest pain or dyspnea on exertion. His pain resolved after admission. Past Medical History Past Medical History Coronary artery disease s/p multivessel PCI/stents placement to LAD/LCx/RCA Hypertension Hyperlipidemia Diabetes mellitus type 2 Aortic dilatation Past Surgical History Past Surgical History Prostate biopsy Lithotripsy Family History Family History Not contributory Social History Social History Patient denied any smoking alcohol or drug abuse Current Problem List Problem List Problems Medical Problems: (1) Chest pain Status: Acute Current Medications Current Medications Current Medications Ondansetron HCl (Zofran) 4 mg PRN Q8HRS PRN IV NAUSEA/VOMITING; Start 11/13/20 at 04:00; Stop 11/14/20 at 03:59 Morphine Sulfate (Morphine Sulfate) 4 mg PRN Q2HR PRN IV PAIN; Start 11/13/20 at 04:00; Stop 11/14/20 at 03:59 Active Scripts Active Reported [san[place]] 20 Mg PO DAILY Flomax (Tamsulosin Hcl) 0.4 Mg Cap.er.24h 0.4 Mg PO DAILY Jardiance (Empagliflozin) 10 Mg Tablet 10 Mg PO DAILY Fish Oil 1,200 Mg Fish Oil (Fish Oil/Dha/Epa) 1 Each Capsule 1 Each PO Aspirin 81 Mg Tab.chew 81 Mg PO Atacand (Candesartan Cilexetil) 32 Mg Tablet 1 Tab PO DAILY Atorvastatin Calcium 20 Mg Tablet 20 Mg PO DAILY Clopidogrel (Clopidogrel Bisulfate) 75 Mg Tablet 75 Mg PO DAILY Carvedilol (Carvedilol) 6.25 Mg Tablet 6.25 Mg PO BIDWMEALS Metformin Hcl 500 Mg Tablet 500 Mg PO BIDWMEALS Hold for 48hrs. Next dose Tuesday 06/19 PM. Allergies Allergies: Coded Allergies: lisinopril (Unverified Allergy, Intermediate, SWELLING, 11/13/20) ROS PSYCHOLOGICAL ROS: No: Hallucinations Eyes: No Loss of vision HEENT: No: Epistaxis Respiratory: No: Hemoptysis Cardiovascular: yes Chest Pain Gastrointestinal: No Vomiting, No Diarrhea Genitourinary: No Hematuria Neurological: No Seizures Skin: No Rash Physical Exam General: Alert, Oriented X3 HEENT: Atraumatic Lungs: Clear to auscultation Heart: Regular rate Abdomen: Soft Extremities: No edema Neuro: Normal speech Psych/Mental Status: Mood NL Vitals VITALS Vital Signs Date Time Temp Pulse Resp B/P (MAP) Pulse Ox O2 Delivery O2 Flow Rate FiO2 11/13/20 08:00 Room Air 11/13/20 07:55 98.0 66 18 152/75 (100) 96 98.0 Labs Labs Laboratory Tests Test 11/13/20 02:40 White Blood Count 7.9 x10^3/uL (4.0-11.0) Red Blood Count 4.54 x10^6/uL (4.30-5.70) Hemoglobin 14.7 g/dL (13.0-17.5) Hematocrit 42.2 % (39.0-53.0) Mean Corpuscular Volume 93 fL (79-100) Mean Corpuscular Hemoglobin 32 pg (25-35) Mean Corpuscular Hemoglobin Concent 35 g/dL (31-37) Red Cell Distribution Width 13.5 % (11.5-14.5) Platelet Count 173 x10^3/uL (140-400) Neutrophils (%) (Auto) 65 % (31-73) Lymphocytes (%) (Auto) 21 % (24-48) Monocytes (%) (Auto) 9 % (0-9) Eosinophils (%) (Auto) 4 % (0-3) Basophils (%) (Auto) 1 % (0-3) Neutrophils # (Auto) 5.1 x10^3/uL (1.8-7.7) Lymphocytes # (Auto) 1.7 x10^3/uL (1.0-4.8) Monocytes # (Auto) 0.7 x10^3/uL (0.0-1.1) Eosinophils # (Auto) 0.3 x10^3/uL (0.0-0.7) Basophils # (Auto) 0.1 x10^3/uL (0.0-0.2) Sodium Level 142 mmol/L (136-145) Potassium Level 4.0 mmol/L (3.5-5.1) Chloride Level 106 mmol/L (98-107) Carbon Dioxide Level 26 mmol/L (21-32) Anion Gap 10 (6-14) Blood Urea Nitrogen 17 mg/dL (8-26) Creatinine 1.1 mg/dL (0.7-1.3) Estimated GFR (Cockcroft-Gault) 65.1 BUN/Creatinine Ratio 15 (6-20) Glucose Level 185 mg/dL (70-99) Calcium Level 8.3 mg/dL (8.5-10.1) Total Bilirubin 0.4 mg/dL (0.2-1.0) Aspartate Amino Transf (AST/SGOT) 18 U/L (15-37) Alanine Aminotransferase (ALT/SGPT) 39 U/L (16-63) Alkaline Phosphatase 128 U/L (46-116) Troponin I Quantitative < 0.017 ng/mL (0.000-0.055) Total Protein 6.9 g/dL (6.4-8.2) Albumin 4.0 g/dL (3.4-5.0) Albumin/Globulin Ratio 1.4 (1.0-1.7) Laboratory Tests Test 11/13/20 02:40 White Blood Count 7.9 x10^3/uL (4.0-11.0) Red Blood Count 4.54 x10^6/uL (4.30-5.70) Hemoglobin 14.7 g/dL (13.0-17.5) Hematocrit 42.2 % (39.0-53.0) Mean Corpuscular Volume 93 fL (79-100) Mean Corpuscular Hemoglobin 32 pg (25-35) Mean Corpuscular Hemoglobin Concent 35 g/dL (31-37) Red Cell Distribution Width 13.5 % (11.5-14.5) Platelet Count 173 x10^3/uL (140-400) Neutrophils (%) (Auto) 65 % (31-73) Lymphocytes (%) (Auto) 21 % (24-48) Monocytes (%) (Auto) 9 % (0-9) Eosinophils (%) (Auto) 4 % (0-3) Basophils (%) (Auto) 1 % (0-3) Neutrophils # (Auto) 5.1 x10^3/uL (1.8-7.7) Lymphocytes # (Auto) 1.7 x10^3/uL (1.0-4.8) Monocytes # (Auto) 0.7 x10^3/uL (0.0-1.1) Eosinophils # (Auto) 0.3 x10^3/uL (0.0-0.7) Basophils # (Auto) 0.1 x10^3/uL (0.0-0.2) Sodium Level 142 mmol/L (136-145) Potassium Level 4.0 mmol/L (3.5-5.1) Chloride Level 106 mmol/L (98-107) Carbon Dioxide Level 26 mmol/L (21-32) Anion Gap 10 (6-14) Blood Urea Nitrogen 17 mg/dL (8-26) Creatinine 1.1 mg/dL (0.7-1.3) Estimated GFR (Cockcroft-Gault) 65.1 BUN/Creatinine Ratio 15 (6-20) Glucose Level 185 mg/dL (70-99) Calcium Level 8.3 mg/dL (8.5-10.1) Total Bilirubin 0.4 mg/dL (0.2-1.0) Aspartate Amino Transf (AST/SGOT) 18 U/L (15-37) Alanine Aminotransferase (ALT/SGPT) 39 U/L (16-63) Alkaline Phosphatase 128 U/L (46-116) Troponin I Quantitative < 0.017 ng/mL (0.000-0.055) Total Protein 6.9 g/dL (6.4-8.2) Albumin 4.0 g/dL (3.4-5.0) Albumin/Globulin Ratio 1.4 (1.0-1.7) Assessment/Plan Assessment/Plan 1. Chest pain with atypical features, most probably musculoskeletal and currently resolved. Myocardial infarction has been ruled out. 2. Coronary artery disease s/p multivessel PCI/stents placement to LAD/LCx/RCA. Recent cardiac catheterization in May 2020 showed patent previously placed stents, 90% de hien stenosis of proximal LAD that was successfully treated with drug-eluting stent and 50% RCA stenosis that was insignificant based on IFR measurement. 2D echo at that time showed LVEF 55%. He is clinically stable. Continue current secondary prevention. 3. Hypertension: Labile but relatively well controlled 4. Hyperlipidemia: Continue statins 5. Aortic dilatation: 4.7 cm on last 2D echocardiogram. He is currently scheduled for CTA prior to office visit. 6. Diabetes mellitus type 2: Continue current medications including Jardiance Thank you for your consultation NORAH SHERWOOD MD November 13, 2020 10:35
[2020-11-13 10:52] VITALS: BP 158/62
--- NOTE | 2020-11-13 11:27 | PDOC1 ---
History and Physical Date of Admission Date of Admission DATE: 11/13/20 TIME: : Identification/Chief Complaint Chief Complaint Chest Pain Source Source: Chart review, Patient History of Present Illness History of Present Illness Patient is a 75-year-old male with past medical history [place], who presents to the ED with complaints of bilateral chest pain since 0130 this morning. He reports "aching "pain, 3/10. He notes some heavy lifting earlier in the day and does feel that his pain could be more musculoskeletal in nature. Patient noted his pain will improve spontaneously, however given his medical history he came to the ED at the behest of his . Labs in ED showed troponin <0.017 and CBG 185. EKG showed normal sinus rhythm. Patient was admitted for further medical management. Past Medical History Past Medical History [place], DM2, prostate cancer Past Surgical History Past Surgical History Meckel's diverticulum, cardiac stent Family History Family History CAD Social History Smoke: No ALCOHOL: occassional Drugs: None Current Problem List Problem List Problems Medical Problems: (1) Chest pain Status: Acute Current Medications Current Medications Current Medications Ondansetron HCl (Zofran) 4 mg PRN Q8HRS PRN IV NAUSEA/VOMITING; Start 11/13/20 at 04:00; Stop 11/14/20 at 03:59 Morphine Sulfate (Morphine Sulfate) 4 mg PRN Q2HR PRN IV PAIN; Start 11/13/20 at 04:00; Stop 11/14/20 at 03:59 Active Scripts Active Reported [saneturg] 20 Mg PO DAILY Flomax (Tamsulosin Hcl) 0.4 Mg Cap.er.24h 0.4 Mg PO DAILY Jardiance (Empagliflozin) 10 Mg Tablet 10 Mg PO DAILY Fish Oil 1,200 Mg Fish Oil (Fish Oil/Dha/Epa) 1 Each Capsule 1 Each PO Aspirin 81 Mg Tab.chew 81 Mg PO Atacand (Candesartan Cilexetil) 32 Mg Tablet 1 Tab PO DAILY Atorvastatin Calcium 20 Mg Tablet 20 Mg PO DAILY Clopidogrel (Clopidogrel Bisulfate) 75 Mg Tablet 75 Mg PO DAILY Carvedilol (Carvedilol) 6.25 Mg Tablet 6.25 Mg PO BIDWMEALS Metformin Hcl 500 Mg Tablet 500 Mg PO BIDWMEALS Hold for 48hrs. Next dose Tuesday 06/19 PM. Allergies Allergies: Coded Allergies: lisinopril (Unverified Allergy, Intermediate, SWELLING, 11/13/20) ROS Review of System GENERAL: No history of weight change, weakness or fevers. SKIN: No bruising, hair changes or rashes. EYES: No blurred, double or loss of vision. NOSE AND THROAT: No history of nosebleeds, hoarseness or sore throat. HEART: Chest pain. Denies palpitations. LUNGS: Denies cough, hemoptysis, wheezing or shortness of breath. GASTROINTESTINAL: Denies nausea, vomiting, abdominal pain. GENITOURINARY: Denies dysuria, frequency, urgency, hematuria. NEUROLOGIC: Denies history of numbness, tingling, tremor or weakness. PSYCHIATRIC: Denies anxiety, denies depression. ENDOCRINE: No history of heat or cold intolerance, polyuria or polydipsia. EXTREMITIES: Denies muscle weakness, joint pain, pain on walking or stiffness. Physical Exam Physical Exam General: Alert, Oriented X3, Cooperative, No acute distress HEENT: PERRLA, EOMI Lungs: Clear to auscultation, Normal air movement Heart: RRR, no murmurs Cardiovascular: S1, S2 Abdomen: Normal bowel sounds, Soft, No tenderness Extremities: No clubbing, No cyanosis Skin: No rashes, No significant lesion Neuro: Normal speech, Normal tone, Sensation intact Psych/Mental Status: Mental status NL, Mood NL Vitals Vitals Vital Signs Date Time Temp Pulse Resp B/P (MAP) Pulse Ox O2 Delivery O2 Flow Rate FiO2 11/13/20 10:52 98.1 68 18 158/62 (94) 97 Room Air 98.1 Labs Labs Laboratory Tests Test 11/13/20 02:40 White Blood Count 7.9 x10^3/uL (4.0-11.0) Red Blood Count 4.54 x10^6/uL (4.30-5.70) Hemoglobin 14.7 g/dL (13.0-17.5) Hematocrit 42.2 % (39.0-53.0) Mean Corpuscular Volume 93 fL (79-100) Mean Corpuscular Hemoglobin 32 pg (25-35) Mean Corpuscular Hemoglobin Concent 35 g/dL (31-37) Red Cell Distribution Width 13.5 % (11.5-14.5) Platelet Count 173 x10^3/uL (140-400) Neutrophils (%) (Auto) 65 % (31-73) Lymphocytes (%) (Auto) 21 % (24-48) Monocytes (%) (Auto) 9 % (0-9) Eosinophils (%) (Auto) 4 % (0-3) Basophils (%) (Auto) 1 % (0-3) Neutrophils # (Auto) 5.1 x10^3/uL (1.8-7.7) Lymphocytes # (Auto) 1.7 x10^3/uL (1.0-4.8) Monocytes # (Auto) 0.7 x10^3/uL (0.0-1.1) Eosinophils # (Auto) 0.3 x10^3/uL (0.0-0.7) Basophils # (Auto) 0.1 x10^3/uL (0.0-0.2) Sodium Level 142 mmol/L (136-145) Potassium Level 4.0 mmol/L (3.5-5.1) Chloride Level 106 mmol/L (98-107) Carbon Dioxide Level 26 mmol/L (21-32) Anion Gap 10 (6-14) Blood Urea Nitrogen 17 mg/dL (8-26) Creatinine 1.1 mg/dL (0.7-1.3) Estimated GFR (Cockcroft-Gault) 65.1 BUN/Creatinine Ratio 15 (6-20) Glucose Level 185 mg/dL (70-99) Calcium Level 8.3 mg/dL (8.5-10.1) Total Bilirubin 0.4 mg/dL (0.2-1.0) Aspartate Amino Transf (AST/SGOT) 18 U/L (15-37) Alanine Aminotransferase (ALT/SGPT) 39 U/L (16-63) Alkaline Phosphatase 128 U/L (46-116) Troponin I Quantitative < 0.017 ng/mL (0.000-0.055) Total Protein 6.9 g/dL (6.4-8.2) Albumin 4.0 g/dL (3.4-5.0) Albumin/Globulin Ratio 1.4 (1.0-1.7) Laboratory Tests Test 11/13/20 02:40 White Blood Count 7.9 x10^3/uL (4.0-11.0) Red Blood Count 4.54 x10^6/uL (4.30-5.70) Hemoglobin 14.7 g/dL (13.0-17.5) Hematocrit 42.2 % (39.0-53.0) Mean Corpuscular Volume 93 fL (79-100) Mean Corpuscular Hemoglobin 32 pg (25-35) Mean Corpuscular Hemoglobin Concent 35 g/dL (31-37) Red Cell Distribution Width 13.5 % (11.5-14.5) Platelet Count 173 x10^3/uL (140-400) Neutrophils (%) (Auto) 65 % (31-73) Lymphocytes (%) (Auto) 21 % (24-48) Monocytes (%) (Auto) 9 % (0-9) Eosinophils (%) (Auto) 4 % (0-3) Basophils (%) (Auto) 1 % (0-3) Neutrophils # (Auto) 5.1 x10^3/uL (1.8-7.7) Lymphocytes # (Auto) 1.7 x10^3/uL (1.0-4.8) Monocytes # (Auto) 0.7 x10^3/uL (0.0-1.1) Eosinophils # (Auto) 0.3 x10^3/uL (0.0-0.7) Basophils # (Auto) 0.1 x10^3/uL (0.0-0.2) Sodium Level 142 mmol/L (136-145) Potassium Level 4.0 mmol/L (3.5-5.1) Chloride Level 106 mmol/L (98-107) Carbon Dioxide Level 26 mmol/L (21-32) Anion Gap 10 (6-14) Blood Urea Nitrogen 17 mg/dL (8-26) Creatinine 1.1 mg/dL (0.7-1.3) Estimated GFR (Cockcroft-Gault) 65.1 BUN/Creatinine Ratio 15 (6-20) Glucose Level 185 mg/dL (70-99) Calcium Level 8.3 mg/dL (8.5-10.1) Total Bilirubin 0.4 mg/dL (0.2-1.0) Aspartate Amino Transf (AST/SGOT) 18 U/L (15-37) Alanine Aminotransferase (ALT/SGPT) 39 U/L (16-63) Alkaline Phosphatase 128 U/L (46-116) Troponin I Quantitative < 0.017 ng/mL (0.000-0.055) Total Protein 6.9 g/dL (6.4-8.2) Albumin 4.0 g/dL (3.4-5.0) Albumin/Globulin Ratio 1.4 (1.0-1.7) Images Images CHEST AP ONLY INDICATION: Reason: chest pain / Spl. Instructions: / History: COMPARISON: None. FINDINGS: Single view of chest obtained. Enlarged cardiomediastinal silhouette. Suspected calcified lymph nodes in the mediastinum which can be sequela of chronic granulomatous disease. Degenerative changes of the shoulders and spine. No definite focal airspace consolidation. IMPRESSION: * Cardiac silhouette prominent in size without focal airspace consolidation. VTE Prophylaxis Ordered VTE Prophylaxis Devices: Yes VTE Pharmacological Prophylaxi: No Assessment/Plan Assessment/Plan Chest pain DM2 hyperglycemia Plan: Chest pain has now resolved I discussed with Dr. Akbar who states that patient had LHC in May 2020 with patent stents. Given resolution of symptoms and normal exam. Patient be discharged home and follow-up with cardiology as outpatient. Justifications for Admission Other Justification JUANA BETANCOURT MD November 13, 2020 11:27
--- NOTE | 2020-11-13 11:53 | PDOC3 ---
Discharge Summary Visit Information Date of Admission: November 13, 2020 Date of Discharge: November 13, 2020 Final Diagnosis Problems Medical Problems: (1) Chest pain Status: Acute Brief Hospital Course Allergies Allergies Coded Allergies Type Severity Reaction Last Updated Verified lisinopril Allergy Intermediate SWELLING 11/13/20 No Vital Signs Vital Signs Date Time Temp Pulse Resp B/P (MAP) Pulse Ox O2 Delivery O2 Flow Rate FiO2 11/13/20 10:52 98.1 68 18 158/62 (94) 97 Room Air 98.1 Lab Results Laboratory Tests Test 11/13/20 02:40 White Blood Count 7.9 x10^3/uL (4.0-11.0) Red Blood Count 4.54 x10^6/uL (4.30-5.70) Hemoglobin 14.7 g/dL (13.0-17.5) Hematocrit 42.2 % (39.0-53.0) Mean Corpuscular Volume 93 fL (79-100) Mean Corpuscular Hemoglobin 32 pg (25-35) Mean Corpuscular Hemoglobin Concent 35 g/dL (31-37) Red Cell Distribution Width 13.5 % (11.5-14.5) Platelet Count 173 x10^3/uL (140-400) Neutrophils (%) (Auto) 65 % (31-73) Lymphocytes (%) (Auto) 21 % (24-48) Monocytes (%) (Auto) 9 % (0-9) Eosinophils (%) (Auto) 4 % (0-3) Basophils (%) (Auto) 1 % (0-3) Neutrophils # (Auto) 5.1 x10^3/uL (1.8-7.7) Lymphocytes # (Auto) 1.7 x10^3/uL (1.0-4.8) Monocytes # (Auto) 0.7 x10^3/uL (0.0-1.1) Eosinophils # (Auto) 0.3 x10^3/uL (0.0-0.7) Basophils # (Auto) 0.1 x10^3/uL (0.0-0.2) Sodium Level 142 mmol/L (136-145) Potassium Level 4.0 mmol/L (3.5-5.1) Chloride Level 106 mmol/L (98-107) Carbon Dioxide Level 26 mmol/L (21-32) Anion Gap 10 (6-14) Blood Urea Nitrogen 17 mg/dL (8-26) Creatinine 1.1 mg/dL (0.7-1.3) Estimated GFR (Cockcroft-Gault) 65.1 BUN/Creatinine Ratio 15 (6-20) Glucose Level 185 mg/dL (70-99) Calcium Level 8.3 mg/dL (8.5-10.1) Total Bilirubin 0.4 mg/dL (0.2-1.0) Aspartate Amino Transf (AST/SGOT) 18 U/L (15-37) Alanine Aminotransferase (ALT/SGPT) 39 U/L (16-63) Alkaline Phosphatase 128 U/L (46-116) Troponin I Quantitative < 0.017 ng/mL (0.000-0.055) Total Protein 6.9 g/dL (6.4-8.2) Albumin 4.0 g/dL (3.4-5.0) Albumin/Globulin Ratio 1.4 (1.0-1.7) Laboratory Tests Test 11/13/20 02:40 White Blood Count 7.9 x10^3/uL (4.0-11.0) Red Blood Count 4.54 x10^6/uL (4.30-5.70) Hemoglobin 14.7 g/dL (13.0-17.5) Hematocrit 42.2 % (39.0-53.0) Mean Corpuscular Volume 93 fL (79-100) Mean Corpuscular Hemoglobin 32 pg (25-35) Mean Corpuscular Hemoglobin Concent 35 g/dL (31-37) Red Cell Distribution Width 13.5 % (11.5-14.5) Platelet Count 173 x10^3/uL (140-400) Neutrophils (%) (Auto) 65 % (31-73) Lymphocytes (%) (Auto) 21 % (24-48) Monocytes (%) (Auto) 9 % (0-9) Eosinophils (%) (Auto) 4 % (0-3) Basophils (%) (Auto) 1 % (0-3) Neutrophils # (Auto) 5.1 x10^3/uL (1.8-7.7) Lymphocytes # (Auto) 1.7 x10^3/uL (1.0-4.8) Monocytes # (Auto) 0.7 x10^3/uL (0.0-1.1) Eosinophils # (Auto) 0.3 x10^3/uL (0.0-0.7) Basophils # (Auto) 0.1 x10^3/uL (0.0-0.2) Sodium Level 142 mmol/L (136-145) Potassium Level 4.0 mmol/L (3.5-5.1) Chloride Level 106 mmol/L (98-107) Carbon Dioxide Level 26 mmol/L (21-32) Anion Gap 10 (6-14) Blood Urea Nitrogen 17 mg/dL (8-26) Creatinine 1.1 mg/dL (0.7-1.3) Estimated GFR (Cockcroft-Gault) 65.1 BUN/Creatinine Ratio 15 (6-20) Glucose Level 185 mg/dL (70-99) Calcium Level 8.3 mg/dL (8.5-10.1) Total Bilirubin 0.4 mg/dL (0.2-1.0) Aspartate Amino Transf (AST/SGOT) 18 U/L (15-37) Alanine Aminotransferase (ALT/SGPT) 39 U/L (16-63) Alkaline Phosphatase 128 U/L (46-116) Troponin I Quantitative < 0.017 ng/mL (0.000-0.055) Total Protein 6.9 g/dL (6.4-8.2) Albumin 4.0 g/dL (3.4-5.0) Albumin/Globulin Ratio 1.4 (1.0-1.7) Brief Hospital Course Mr. Muniz is a 75 old male with past medical history [place] who presented with chest pain. Patient is a patient of Dr. Akbar. Consultation placed to cardiology. Personally discussed with Dr. Akbar that patient hadLHC May 2020 with patent stents. Given resolution of symptoms and normal exam chest pain was deemed to be musculoskeletal in nature. Patient may be discharged home and follow-up with cardiology as outpatient. Discharge Information Condition at Discharge: Improved Follow Up: Weeks Disposition/Orders: D/C to Home Scheduled Atorvastatin Calcium (Atorvastatin Calcium) 20 Mg Tablet, 20 MG PO DAILY for FOR CHOLESTEROL, #30 Ref 0 (Reported) Entered as Reported by: CHRISTIE GARRISON on 04/15/17910 Last Action: Reviewed on 11/13/2013 by Linda Calixto Candesartan Cilexetil (Atacand) 32 Mg Tablet, 1 TAB PO DAILY, #30 Ref 5 (Reported) Entered as Reported by: CHRISTIE GARRISON on 04/15/17910 Last Action: Reviewed on 11/13/20512 by Linda Calixto Carvedilol (Carvedilol ) 6.25 Mg Tablet, 6.25 MG PO BIDWMEALS, (Reported) Entered as Reported by: CHRISTIE GARRISON on 04/15/17910 Last Action: Reviewed on 11/13/20512 by Linda Calixto Clopidogrel Bisulfate (Clopidogrel) 75 Mg Tablet, 75 MG PO DAILY for TO PREVENT BLOOD CLOTS, #30 Ref 0 (Reported) Entered as Reported by: CHRISTIE GARRISON on 04/15/17910 Last Action: Reviewed on 11/13/20512 by Linda Calixto Empagliflozin (Jardiance) 10 Mg Tablet, 10 MG PO DAILY for blood sugar, (Reported) Entered as Reported by: CHINA DEWITT on 06/17/20811 Last Action: Reviewed on 11/13/20512 by Linda Calixto Metformin Hcl (Metformin Hcl) 500 Mg Tablet, 500 MG PO BIDWMEALS for ANTI- DIABETIC, Ref 0 (Reported) Hold for 48hrs. Next dose Tuesday 06/19 PM. Entered as Reported by: CHRISTIE GARRISON on 04/15/17910 Last Action: Reviewed on 11/13/20512 by Linda Calixto Tamsulosin Hcl (Flomax) 0.4 Mg Cap.er.24h, 0.4 MG PO DAILY for bph, (Reported) Entered as Reported by: CHINA DEWITT on 06/17/20811 Last Action: Reviewed on 11/13/20512 by Linda Calixto [saneturg] , 20 MG PO DAILY for bph, (Reported) Entered as Reported by: CHINA DEWITT on 06/17/20811 Last Action: Reviewed on 11/13/20512 by Linda Calixto Miscellaneous Medications Aspirin (Aspirin) 81 Mg Tab.chew, 81 MG PO, (Reported) Entered as Reported by: CHRISTIE GARRISON on 04/15/17910 Last Action: Reviewed on 11/13/20512 by Linda Calixto Fish Oil/Dha/Epa (Fish Oil 1,200 Mg Fish Oil) 1 Each Capsule, 1 EACH PO, (Reported) Entered as Reported by: CHRISTIE GARRISON on 04/15/17910 Last Action: Reviewed on 11/13/20512 by Linda Calixto Justicifation of Admission Dx: Justifications for Admission: Justification of Admission Dx: Yes JUANA BETANCOURT MD November 13, 2020 11:53
--- NOTE | 2020-11-13 13:20 | NUR ---
Discharge Note: STEVAN HERNANDEZ Discharge instructions and discharge home medications reviewed with Patient and a copy given. All questions have been answered and understanding verbalized. The following instructions and handouts were given: Chest pain Discontinued lines and drains: Peripheral IV intact. Patient discharged to Home or Self Care with Self via Wheelchair
== END 2020-11-13 13:20 | disposition home or self-care (01) ==
LOC: ER 02:31 → 2 SOUTH 03:55
PROVIDERS: ADMIT Family Medicine; ATTEND Family Medicine
DX: R07.89 Other chest pain (principal); E11.65 Type 2 diabetes mellitus with hyperglycemia; I77.819 Aortic ectasia, unspecified site; I25.2 Old myocardial infarction; Z85.46 Personal history of malignant neoplasm of prostate; Z95.5 Presence of coronary angioplasty implant and graft; Z79.82 Long term (current) use of aspirin; Z79.84 Long term (current) use of oral hypoglycemic drugs
CPT/HCPCS: 36415; 71045; 80053; 84484; 85025; 93005; 99285; G0378; G0379

== ENCOUNTER 2020-12-23 17:15 | Inpatient (IN) | payer OTHER, MEDICARE ==
[~2020-12-23] VITALS: Ht 172.7 cm; Wt 100.5 kg
[2020-12-23] MEDS ORDERED: IV NORMAL SALINE 1000ML BAG 1,000 ML IV SCH (17:30)
[2020-12-23 17:42] LABS: BILIRUBIN,URINE NEGATIVE (NEG); CLARITY,URINE CLEAR; COLOR,URINE YELLOW; NITRITE,URINE NEGATIVE (NEG); PROTEIN,URINE 30 mg/dL (NEG-TRACE); UROBILINOGEN,URINE 0.2 mg/dL (0.2 mg/dL)
[2020-12-23 17:48] LABS: BASO # 0.1 x10^3/uL (0.0-0.2); BASO % 1 % (0-3); EOS # 0.3 x10^3/uL (0.0-0.7); EOS % 3 % (0-3); HEMATOCRIT 43.2 % (39.0-53.0); HEMOGLOBIN 14.9 g/dL (13.0-17.5); LYMPH # 1.1 x10^3/uL (1.0-4.8); LYMPH % 11 % (24-48); MEAN CORPUSCULAR HEMOGLOBIN 32 pg (25-35); MEAN CORPUSCULAR HGB CONC 35 g/dL (31-37); MEAN CORPUSCULAR VOLUME 94 fL (79-100); MONO # 0.6 x10^3/uL (0.0-1.1); MONO % 6 % (0-9); NEUT % 80 % (31-73); PLATELET COUNT 172 x10^3/uL (140-400); RED CELL DISTRIBUTION WIDTH 13.6 % (11.5-14.5)
[2020-12-23 17:49] LABS: BARBITURATES NEG (NEG); BENZODIAZEPINES NEG (NEG); CANNABINOIDS NEG (NEG); COCAINE NEG (NEG); METHADONE NEG (NEG); OPIATES NEG (NEG); PHENCYCLIDINE NEG (NEG)
[2020-12-23 17:52] LABS: AMPHETAMINE/METHAMPHETAMINE NEG (NEG)
[2020-12-23 17:58] LABS: CALCIUM 8.6 mg/dL (8.5-10.1); CREATININE 1.1 mg/dL (0.7-1.3); GFR 65.1; PROTHROMBIN TIME PATIENT 13.8 SEC (11.7-14.0)
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
--- NOTE | 2020-12-23 18:12 | RAD ---
Three-view left ankle dated 12/23/2020. No comparison available. CLINICAL INDICATION: Pain. FINDINGS: 3 views left ankle show normal bony alignment. There is a nondisplaced fracture through the base of t he medial malleolus. No definite fracture of the distal fibula. Posterior malleolus appears to be int act. There is diffuse vascular calcinosis. The talar dome is intact. IMPRESSION: 1. Nondisplaced transverse fracture through the medial malleolus. Electronically signed by: Abdulkadir Mace MD (12/23/2020 6:09 PM) [facility]
[2020-12-23] MEDS ORDERED: CONTRAST GIVEN. MC PRN (18:15)
[2020-12-23] MEDS ORDERED: IOHEXOL 300 MG/ML 100ML VIAL. IV ONE (18:15)
[2020-12-23 18:19] LABS: RBC,URINE >40 /HPF (0-2)
[2020-12-23 18:20] LABS: BACTERIA,URINE FEW /HPF (0-FEW); WBC,URINE RARE /HPF (0-4)
--- NOTE | 2020-12-23 18:27 | EKG ---
[facility] [address] [place] [address] Test Date: 2020-12-23 Test Time: 17:30:49 Pat Name: STEVAN HERNANDEZ Department: Room: Gender: M Miller First: : 1945 Requested By: JOHN DICKINSON Order Number: [id number] Reading MD: Measurements Intervals [place] Rate: 94 P: -2 IL: 172 QRS: -51 QRSD: 98 T: 62 QT: 354 QTc: 448 Interpretive Statements SINUS RHYTHM ABNORMAL LEFT AXIS DEVIATION LEFT ANTERIOR FASCICULAR BLOCK QRS(T) CONTOUR ABNORMALITY CONSISTENT WITH ANTEROSEPTAL INFARCT PROBABLY OLD ABNORMAL ECG RI6.01 No previous ECG available for comparison
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
[2020-12-23] MEDS ORDERED: ACETAMINOPHEN 325 MG TABLET. PO PRN (19:30)
[2020-12-23] MEDS ORDERED: ONDANSETRON PF 4 MG/2 ML VIAL. IV PRN (19:30)
[2020-12-23 20:50] VITALS: BP 148/86
--- NOTE | 2020-12-23 21:00 | NUR ---
The patient, STEVAN HERNANDEZ, 75 y/o, M admitted by AMINA ALVAREZ MD, was given written information regarding hospital policies, unit procedures and contact persons. Valuables were checked and Assessment completed vss pt with c/o throat soreness and dry call light placed in reach call placed to Dr. Alvarez regarding pt home meds being restarted. Will resume care and continue to monitor pt.
[2020-12-23] MEDS ORDERED: CAND4TAB PO (21:20)
[2020-12-23] MEDS ORDERED: MIRA50TA3 PO (21:20)
[2020-12-23] MEDS ORDERED: BENZOCAINE/MENTHOL LOZENGE. PO PRN (22:15)
[2020-12-23] MEDS ORDERED: DEXTROSE 50% 25 GM / 50ML DISP.SYRIN. IV PRN (22:15)
[2020-12-23] MEDS: CARVEDILOL 6.25 MG TABLET. PO SCH (22:33)
[2020-12-23] MEDS: ATORVASTATIN CALCIUM 20 MG TABLET PO SCH (22:33)
[2020-12-23] MEDS: TAMSULOSIN 0.4 MG CAP.ER.24H. PO SCH (22:33)
[2020-12-23] MEDS: fentaNYL PF VIAL 100 MCG/2 ML VIAL IV PRN (22:48)
[2020-12-23 23:15] VITALS: BP 113/74
[2020-12-24 03:02] VITALS: BP 90/62
[2020-12-24] MEDS: fentaNYL PF VIAL 100 MCG/2 ML VIAL IV PRN ×2 (03:05→08:47)
[2020-12-24 07:00] VITALS: BP 93/70
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
[2020-12-24 07:54] LABS: BASO % 0 % (0-3); EOS % 0 % (0-3); HEMATOCRIT 36.3 % (39.0-53.0); HEMOGLOBIN 12.4 g/dL (13.0-17.5); LYMPH # 0.8 x10^3/uL (1.0-4.8); LYMPH % 7 % (24-48); MEAN CORPUSCULAR HEMOGLOBIN 32 pg (25-35); MEAN CORPUSCULAR HGB CONC 34 g/dL (31-37); MEAN CORPUSCULAR VOLUME 95 fL (79-100); MONO # 0.8 x10^3/uL (0.0-1.1); MONO % 7 % (0-9); NEUT # 8.9 x10^3/uL (1.8-7.7); NEUT % 85 % (31-73); PLATELET COUNT 176 x10^3/uL (140-400); RED BLOOD COUNT 3.84 x10^6/uL (4.30-5.70); RED CELL DISTRIBUTION WIDTH 13.7 % (11.5-14.5); WHITE BLOOD COUNT 10.6 x10^3/uL (4.0-11.0)
[2020-12-24 08:11] LABS: ALBUMIN 3.4 g/dL (3.4-5.0); ALBUMIN/GLOBULIN RATIO 1.5 (1.0-1.7); CALCIUM 8.1 mg/dL (8.5-10.1); CREATININE 0.9 mg/dL (0.7-1.3); TOTAL BILIRUBIN 0.9 mg/dL (0.2-1.0); TOTAL PROTEIN 5.7 g/dL (6.4-8.2)
[2020-12-24] MEDS: CLOPIDOGREL BISULFATE 75 MG TABLET PO SCH (08:44)
[2020-12-24] MEDS: ASPIRIN CHEWABLE 81 MG TABLET. PO SCH (08:44)
[2020-12-24] MEDS: TAMSULOSIN 0.4 MG CAP.ER.24H. PO SCH ×2 (08:45→21:16)
[2020-12-24] MEDS: CARVEDILOL 6.25 MG TABLET. PO SCH (08:45)
[2020-12-24] MEDS: INSULIN LISPRO 300 UNITS/3 ML VIAL. SQ SCH ×3 (08:57→18:02)
[2020-12-24] MEDS: LOSARTAN POTASSIUM 25 MG TABLET. PO SCH (09:00)
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
[2020-12-24 10:51] VITALS: BP 95/62
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
[2020-12-24] MEDS ORDERED: IV NORMAL SALINE 1000ML BAG 1,000 ML IV ONE (12:30)
[2020-12-24 15:00] VITALS: BP 139/64
[2020-12-24] MEDS: HYDROcodone/APAP 5/325MG 1 TAB TABLET PO PRN (17:58)
[2020-12-24] MEDS: CARVEDILOL 3.125 MG TABLET. PO SCH (17:58)
[2020-12-24] MEDS: ENOXAPARIN 40 MG/0.4 ML SYRINGE. SQ SCH (17:59)
[2020-12-24 19:12] VITALS: BP 101/65
[2020-12-24] MEDS: ATORVASTATIN CALCIUM 20 MG TABLET PO SCH (21:16)
[2020-12-24 23:06] VITALS: BP 115/62
[2020-12-25] MEDS: HYDROcodone/APAP 5/325MG 1 TAB TABLET PO PRN ×4 (02:05→22:57)
[2020-12-25 02:09] VITALS: BP 131/75
[2020-12-25 07:00] VITALS: BP 116/65
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
[2020-12-25] MEDS: CARVEDILOL 3.125 MG TABLET. PO SCH ×2 (08:54→17:50)
[2020-12-25] MEDS: TAMSULOSIN 0.4 MG CAP.ER.24H. PO SCH ×2 (08:54→20:42)
[2020-12-25] MEDS: ASPIRIN CHEWABLE 81 MG TABLET. PO SCH (08:54)
[2020-12-25] MEDS: CLOPIDOGREL BISULFATE 75 MG TABLET PO SCH (08:54)
[2020-12-25] MEDS: LOSARTAN POTASSIUM 25 MG TABLET. PO SCH (09:00)
[2020-12-25] MEDS: INSULIN LISPRO 300 UNITS/3 ML VIAL. SQ SCH ×3 (09:00→17:54)
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
[2020-12-25 11:07] VITALS: BP 148/67
[2020-12-25 15:03] VITALS: BP 117/64
[2020-12-25] MEDS: ENOXAPARIN 40 MG/0.4 ML SYRINGE. SQ SCH (17:00)
[2020-12-25 19:35] VITALS: BP 107/65
--- NOTE | 2020-12-25 19:40 | NUR ---
Pt in bed assessment completed vss poc explained pt reoriented to surroundings call light in reach bed alarm set will resume care and continue to monitor pt.
[2020-12-25] MEDS: ATORVASTATIN CALCIUM 20 MG TABLET PO SCH (20:42)
[2020-12-25 22:35] VITALS: BP 134/73
--- NOTE | 2020-12-26 01:00 | NUR ---
Assumed patient care, agree with Ronald stereotyper apprentice. Will continue to monitor.
[2020-12-26 03:00] VITALS: BP 116/72
[2020-12-26 07:00] VITALS: BP 119/77
[2020-12-26] MEDS: ASPIRIN CHEWABLE 81 MG TABLET. PO SCH (08:54)
[2020-12-26] MEDS: LOSARTAN POTASSIUM 25 MG TABLET. PO SCH (08:55)
[2020-12-26] MEDS: CARVEDILOL 3.125 MG TABLET. PO SCH ×2 (08:55→17:12)
[2020-12-26] MEDS: TAMSULOSIN 0.4 MG CAP.ER.24H. PO SCH ×2 (08:55→21:02)
[2020-12-26] MEDS: CLOPIDOGREL BISULFATE 75 MG TABLET PO SCH (08:56)
[2020-12-26] MEDS: HYDROcodone/APAP 5/325MG 1 TAB TABLET PO PRN ×3 (08:58→22:10)
[2020-12-26] MEDS: INSULIN LISPRO 300 UNITS/3 ML VIAL. SQ SCH ×3 (09:03→17:18)
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
[2020-12-26 11:22] VITALS: BP 122/69
--- NOTE | 2020-12-26 13:36 | NUR ---
SS following for discharge planning. SS reviewed pt chart and discussed with pt RN. Pt is from home and is currently on room air. PT recommended nursing home unit. OT ordered. SS met with pt in room to discuss discharge planning and nursing home unit. Pt agreeable to nursing home unit at this time and requested referral be phoned and faxed to [facility], ; fax [phone]. Pt has had both COVID19 vaccinations. Copy of card provided. SS phoned and faxed referral as requested. NO COVID19 test needed for placement. SS will continue to follow for discharge planning.
[2020-12-26 15:20] VITALS: BP 104/62
[2020-12-26] MEDS: ENOXAPARIN 40 MG/0.4 ML SYRINGE. SQ SCH (17:12)
[2020-12-26 19:00] VITALS: BP 144/78
--- NOTE | 2020-12-26 19:30 | NUR ---
Pt in bed assessment completed vss poc explained pt c/o pain to mid chest area, pt medicated prior pt reoriented to surroundings call light in reach and bed alarm set will resume care and continue to monitor pt.
[2020-12-26] MEDS: ATORVASTATIN CALCIUM 20 MG TABLET PO SCH (21:02)
[2020-12-26 22:52] VITALS: BP 129/66
[2020-12-27 03:11] VITALS: BP 133/68
[2020-12-27 07:00] VITALS: BP 133/72
[2020-12-27 08:15] LABS: BASO % 0 % (0-3); EOS # 0.2 x10^3/uL (0.0-0.7); EOS % 2 % (0-3); HEMATOCRIT 28.7 % (39.0-53.0); LYMPH % 14 % (24-48); MEAN CORPUSCULAR HEMOGLOBIN 32 pg (25-35); MEAN CORPUSCULAR HGB CONC 35 g/dL (31-37); MEAN CORPUSCULAR VOLUME 93 fL (79-100); MONO # 0.7 x10^3/uL (0.0-1.1); MONO % 9 % (0-9); NEUT # 5.5 x10^3/uL (1.8-7.7); NEUT % 75 % (31-73); PLATELET COUNT 142 x10^3/uL (140-400); RED BLOOD COUNT 3.08 x10^6/uL (4.30-5.70); RED CELL DISTRIBUTION WIDTH 13.8 % (11.5-14.5); WHITE BLOOD COUNT 7.3 x10^3/uL (4.0-11.0)
[2020-12-27 08:16] LABS: CALCIUM 7.9 mg/dL (8.5-10.1); CREATININE 0.8 mg/dL (0.7-1.3); POTASSIUM 3.7 mmol/L (3.5-5.1)
[2020-12-27] MEDS: ASPIRIN CHEWABLE 81 MG TABLET. PO SCH (08:43)
[2020-12-27] MEDS: TAMSULOSIN 0.4 MG CAP.ER.24H. PO SCH ×2 (08:44→21:34)
[2020-12-27] MEDS: CLOPIDOGREL BISULFATE 75 MG TABLET PO SCH (08:44)
[2020-12-27] MEDS: LOSARTAN POTASSIUM 25 MG TABLET. PO SCH (08:44)
[2020-12-27] MEDS: HYDROcodone/APAP 5/325MG 1 TAB TABLET PO PRN ×2 (08:44→17:40)
[2020-12-27] MEDS: CARVEDILOL 3.125 MG TABLET. PO SCH ×2 (08:45→17:40)
[2020-12-27] MEDS: INSULIN LISPRO 300 UNITS/3 ML VIAL. SQ SCH ×3 (08:50→17:47)
--- NOTE | 2020-12-27 10:39 | NUR ---
SS following up with discharge planning. SS reviewed pt chart and discussed with pt RN. Pt is currently on room air. PT recommended assisted unit. Pt was accepted at [facility], ; fax [phone]. Pt's spouse spoke with Dr. Maldonado and reported that she does not want pt going to [facility] and wants referral to [facility], ; fax [phone]. SS phoned and faxed referral as requested. SS will continue to follow for discharge planning. Addendum: 12/27/20 at 1440 by VIRGIL DALY [facility] contacted SS and reported no beds available at this time and could not accept pt due to bed availability. Pt's spouse notified. Pt's spouse requested referral to [facility] and [facility], ; fax [phone]. SS phoned and faxed referral as requested.
[2020-12-27 11:00] VITALS: BP 114/48
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
[2020-12-27] MEDS ORDERED: HYDR-2761 PO (11:23)
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
[2020-12-27] MEDS: DOCUSATE SODIUM 100 MG CAPSULE. PO SCH ×2 (12:27→21:34)
[2020-12-27 15:00] VITALS: BP 121/70
[2020-12-27] MEDS: ENOXAPARIN 40 MG/0.4 ML SYRINGE. SQ SCH (17:42)
--- NOTE | 2020-12-27 19:15 | NUR ---
Pt in bed, pt reoriented to surroundings pt forgetful assessment completed vss poc explained pt call light in reach bed alarm set will resume care.
[2020-12-27 19:21] VITALS: BP 159/78
[2020-12-27] MEDS ORDERED: ACETAMINOPHEN 325 MG TABLET. PO PRN (21:15)
[2020-12-27] MEDS: ATORVASTATIN CALCIUM 20 MG TABLET PO SCH (21:34)
[2020-12-27 22:12] VITALS: BP 130/76
[2020-12-28 03:00] VITALS: BP 131/72
[2020-12-28 07:00] VITALS: BP 137/79
[2020-12-28 08:01] LABS: BASO % 1 % (0-3); EOS # 0.1 x10^3/uL (0.0-0.7); EOS % 2 % (0-3); HEMATOCRIT 29.5 % (39.0-53.0); HEMOGLOBIN 10.2 g/dL (13.0-17.5); LYMPH # 0.9 x10^3/uL (1.0-4.8); LYMPH % 11 % (24-48); MEAN CORPUSCULAR HEMOGLOBIN 32 pg (25-35); MEAN CORPUSCULAR HGB CONC 35 g/dL (31-37); MEAN CORPUSCULAR VOLUME 94 fL (79-100); MONO # 0.7 x10^3/uL (0.0-1.1); MONO % 9 % (0-9); NEUT # 5.9 x10^3/uL (1.8-7.7); NEUT % 77 % (31-73); PLATELET COUNT 153 x10^3/uL (140-400); RED BLOOD COUNT 3.14 x10^6/uL (4.30-5.70); RED CELL DISTRIBUTION WIDTH 13.4 % (11.5-14.5); WHITE BLOOD COUNT 7.6 x10^3/uL (4.0-11.0)
[2020-12-28 08:21] LABS: CREATININE 0.8 mg/dL (0.7-1.3); POTASSIUM 3.7 mmol/L (3.5-5.1)
[2020-12-28] MEDS: CLOPIDOGREL BISULFATE 75 MG TABLET PO SCH (08:23)
[2020-12-28] MEDS: DOCUSATE SODIUM 100 MG CAPSULE. PO SCH (08:23)
[2020-12-28] MEDS: ASPIRIN CHEWABLE 81 MG TABLET. PO SCH (08:23)
[2020-12-28] MEDS: CARVEDILOL 3.125 MG TABLET. PO SCH (08:24)
[2020-12-28] MEDS: TAMSULOSIN 0.4 MG CAP.ER.24H. PO SCH (08:24)
[2020-12-28] MEDS: LOSARTAN POTASSIUM 25 MG TABLET. PO SCH (08:24)
[2020-12-28] MEDS ORDERED: BENZOCAINE 10% ORAL GEL 7GM TUBE. TP PRN (08:30)
[2020-12-28] MEDS: INSULIN LISPRO 300 UNITS/3 ML VIAL. SQ SCH ×2 (08:32→13:08)
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
[2020-12-28 11:00] VITALS: BP 132/70
--- NOTE | 2020-12-28 11:20 | NUR ---
SS following up with discharge planning. SS reviewed pt chart and discussed with pt RN. Pt is currently on room air. PT/OT recommended prison unit. Pt accepted at [facility], ; fax [phone]. Discharge orders received and phoned and faxed to [facility]. SS currently awaiting transportation time. Pt, pt's RN, and pt's spouse notified. Addendum: 12/28/20 at 1322 by VIRGIL DALY SS Pt will discharge today and go to [facility] at [address] [facility] to provide transportation. Pt's RN notified.
[2020-12-28] MEDS: HYDROcodone/APAP 5/325MG 1 TAB TABLET PO PRN (13:09)
[2020-12-28 15:00] VITALS: BP 110/60
--- NOTE | 2020-12-28 17:01 | NUR ---
Discharge Note: STEVAN HERNANDEZ Discharge instructions and discharge home medications reviewed with Other facility and a copy given. All questions have been answered and understanding verbalized. The following instructions and handouts were given: sternal fx, cardiac diet IV discontinued, no complications. Patient discharged to [facility] and rehab by wheelchair/transport Report called to FANI Carr. Patient's , Radha, notified of patient's departure.
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
== END 2020-12-28 16:20 | DRG 565 ==
LOC: ER 17:15 → 2 NORTH 19:00 → ER 20:40
PROVIDERS: ADMIT Internal Medicine; ATTEND Internal Medicine
DX: S22.20XA Unspecified fracture of sternum, initial encounter for closed fracture (principal); G93.40 Encephalopathy, unspecified; E11.9 Type 2 diabetes mellitus without complications; E78.5 Hyperlipidemia, unspecified; I10 Essential (primary) hypertension; I25.10 Atherosclerotic heart disease of native coronary artery without angina pectoris; K57.30 Diverticulosis of large intestine without perforation or abscess without bleeding; K59.00 Constipation, unspecified; R77.8 Other specified abnormalities of plasma proteins; S22.39XA Fracture of one rib, unspecified side, initial encounter for closed fracture; S82.52XA Displaced fracture of medial malleolus of left tibia, initial encounter for closed fracture; V89.2XXA Person injured in unspecified motor-vehicle accident, traffic, initial encounter; Y93.89 Activity, other specified; Y92.89 Other specified places as the place of occurrence of the external cause; Y99.8 Other external cause status; Z79.02 Long term (current) use of antithrombotics/antiplatelets; Z82.49 Family history of ischemic heart disease and other diseases of the circulatory system; Z87.891 Personal history of nicotine dependence; Z95.5 Presence of coronary angioplasty implant and graft; I95.9 Hypotension, unspecified; I25.2 Old myocardial infarction; Z88.8 Allergy status to other drugs, medicaments and biological substances
CPT/HCPCS: 36415; 70450; 71260; 72125; 73610; 74177; 80048; 80053; 80307; 81001; 82962; 84484; 85025; 85610; 85730; 86850; 86900; 86901; 93005; 96361; 96374; G0480; J1650; J1815; J2405; J3010; J7030; Q9967; 97110-GP; 97116-GP; 97530-GP; 99285-25; G0378